=== PATIENT | male | born 1975 | race Hispanic/Latino ===

== ENCOUNTER 2016-09-22 05:18 | Inpatient (IN) | payer OTHER ==
--- NOTE | 2016-09-22 05:29 | C.PDOC ---
Time Seen by Provider: 09/22/16 05:28 Past Medical History Reviewed: Historical Data, Nursing Documentation, Vital Signs - Medical History PMH: Diabetes Denies: Chronic Kidney Disease - [facility] Procedures ALCOHOL DETOXIFICATION (01/02/13) VENOUS CATHETERIZATION NEC (10/26/12) Family History: States: Unknown Family Hx - Social History Hx Tobacco Use: No Hx Alcohol Use: Yes (daily) Hx Substance Use: No (DENIED) - Immunization History Hx Tetanus Toxoid Vaccination: No Hx Influenza Vaccination: No Hx Pneumococcal Vaccination: No ED Course And Treatment ECG: Interpreted By Me, Viewed By Me ECG Rhythm: Sinus Tachycardia (144), Nonspecific Changes Critical Care Time - Critical Care Note Total Time (in mins): 30 Documented critical care: time excludes all time spent performing seperately billable procedures. Disposition Counseled Patient/Family Regarding: Studies Performed, Diagnosis - Disposition Disposition Time: 05:29
[2016-09-22] MEDS ORDERED: Sodium Chloride 0.9% 3,000 ML IV ONE (05:40)
--- NOTE | 2016-09-22 05:54 | C.PDOC ---
History Of Present Illness Pt with nausea, vomiting, not taking his diabetic meds for about 4- days. Pt tachycardic, tachipneic, dry lips. No f/c/. Not tolerating po Time Seen by Provider: 09/22/16 05:28 Chief Complaint (Nursing): Shortness Of Breath History Per: Patient History/Exam Limitations: no limitations Onset/Duration Of Symptoms: Days Current Symptoms Are (Timing): Still Present Severity: Severe Pain Scale Rating Of: 8 Current Diabetic Medications: Oral Medication Causative (Exacerbating) Factor(s): Missed Taking Medication Associated Infectious Symptoms: Nausea, Vomiting. denies: Cough, Sore Throat, Sinus Congestion, Dysuria Treatment Prior To Provider Evaluation: None Recent travel outside of the [place]: No Additional History Per: Patient Past Medical History Reviewed: Historical Data, Nursing Documentation, Vital Signs Vital Signs: Last Vital Signs Temp 98.1 F 09/22/16 05:37 Pulse 147 H 09/22/16 05:37 Resp 22 09/22/16 05:37 BP 148/112 H 09/22/16 05:37 Pulse Ox 98 09/22/16 06:13 - Medical History PMH: Diabetes, HTN Denies: Chronic Kidney Disease - [facility] Procedures ALCOHOL DETOXIFICATION (01/02/13) VENOUS CATHETERIZATION NEC (10/26/12) Family History: States: No Known Family Hx - Social History Hx Tobacco Use: No Hx Alcohol Use: Yes (daily) Hx Substance Use: No (DENIED) - Immunization History Hx Tetanus Toxoid Vaccination: No Hx Influenza Vaccination: No Hx Pneumococcal Vaccination: No Review Of Systems Constitutional: Negative for: Fever, Chills Eyes: Negative for: Vision Change ENT: Negative for: Throat Pain Cardiovascular: Positive for: Palpitations. Negative for: Chest Pain Respiratory: Positive for: Shortness of Breath Gastrointestinal: Positive for: Nausea, Vomiting, Abdominal Pain Genitourinary: Negative for: Dysuria Musculoskeletal: Negative for: Back Pain Skin: Negative for: Rash, Lesions, Jaundice, Bruising Neurological: Negative for: Weakness Psych: Negative for: Anxiety Physical Exam - Physical Exam Appears: In Acute Distress Skin: Dry, Pale Head: Normacephalic Eye(s): bilateral: Normal Inspection, PERRL, EOMI Oral Mucosa: Dry Neck: Trachea Midline, Supple Chest: Symmetrical Cardiovascular: Rhythm Regular (tachy) Respiratory: No Rales, No Rhonchi, No Wheezing Gastrointestinal/Abdominal: Soft, No Tenderness, No Distention Back: Normal Inspection Extremity: Normal ROM Extremity: Bilateral: Atraumatic, Limited ROM To Joint Neurological/Psych: Oriented x3, Normal Speech, Normal Cognition Gait: Steady ED Course And Treatment - Laboratory Results Result Diagrams: 09/22/16 05:56 09/22/16 05:56 ECG: Interpreted By Me, Viewed By Me ECG Rhythm: Sinus Tachycardia (144), Nonspecific Changes O2 Sat by Pulse Oximetry: 98 Pulse Ox Interpretation: Normal - Radiology CXR: Interpreted by Me, Viewed By Me CXR Interpretation: Yes: Other (? rll infiltrate). No: Fracture, Cardiomegaly, Pnemothorax Progress Note: blood work, ivf, abg, Disposition Counseled Patient/Family Regarding: Studies Performed, Diagnosis - Disposition Disposition: HOSPITALIZED Disposition Time: 05:51 Condition: CRITICAL - POA Present On Arrival: Poor Glycemic Control - Clinical Impression Clinical Impression: DKA (diabetic ketoacidosis) Physician Patient Turnover Patient Signed Over To: Mariia Vela Handoff Comments: pending labs and admission
[2016-09-22 05:58] LABS: BASO # 0.1 K/uL (0.0-0.2); EOS % 0.1 % (0.0-4.0); HEMATOCRIT 48.3 % (35.0-51.0); LYMPH # 0.3 K/uL (1.0-4.3); LYMPH % 3.1 % (20.0-40.0); MEAN CELL VOLUME 93.7 fL (80.0-94.0); MEAN CORPUSCULAR HEMOGLOBIN 30.7 pg (27.0-31.0); MEAN CORPUSCULAR HGB CONC 32.8 g/dL (33.0-37.0); MEAN PLATELET VOLUME 8.7 fL (7.2-11.7); MONO # 0.9 K/uL (0.0-0.8); MONO % 8.6 % (0.0-10.0); PLATELET COUNT 143 K/uL (130-400); RED CELL DISTRIBUTION WIDTH 13.6 % (11.5-14.5)
[2016-09-22 06:06] LABS: CHLORIDE 94 mmol/L (98-107)
[2016-09-22 06:07] LABS: POTASSIUM 5.1 mmol/L (3.6-5.2); SODIUM 135 mmol/L (132-148)
[2016-09-22 06:09] LABS: ALKALINE PHOSPHATASE 181 U/L (38-126); ALT/SGPT 145 U/L (21-72); AST/SGOT 60 U/L (17-59); BLOOD UREA NITROGEN 22 mg/dL (9-20); GFR AFRICAN-AMERICAN > 60; TOTAL PROTEIN 8.6 g/dL (6.3-8.3)
[2016-09-22 06:10] LABS: CALCIUM 10.3 mg/dl (8.6-10.4)
[2016-09-22 06:34] LABS: ALB/GLOB RATIO 1.5 (1.0-2.1)
[2016-09-22 06:36] LABS: CARBON DIOXIDE 5 mmol/L (22-30); GLUCOSE,RANDOM 472 mg/dL (75-110)
[2016-09-22] MEDS ORDERED: Sodium Chloride 0.9% 1,000 ML IV ONE ×2 (06:37→11:40)
[2016-09-22 07:08] LABS: ABG ALLEN TEST POS; DRAW SITE R RAD
[2016-09-22 07:09] LABS: NEUTROPHIL 81 % (50-75); REACTIVE LYMPHOCYTES 1 % (0-0); TOTAL CELLS COUNTED 100
[2016-09-22] MEDS: Sodium Chloride 0.9% 1,000 ML IV SCH ×2 (07:15→08:15)
[2016-09-22] MEDS ORDERED: Sodium Bicarbonate (8.4%) 50 Meq Syringe IVP ONE (07:23)
[2016-09-22] MEDS ORDERED: Insulin Human Regular 100 UNIT in Sodium Chloride 0.9% 99 ML IV SCH ×2 (07:30→08:30)
[2016-09-22] MEDS ORDERED: Sodium Bicarbonate (8.4%) 50 Meq Syringe ONE (07:40)
[2016-09-22] MEDS ORDERED: Sodium Chloride 0.9% 1,000 ML IV SCH ×2 (07:45)
[2016-09-22 07:58] VITALS: BMI 23.3
[2016-09-22] MEDS ORDERED: cefTRIAXone IV 1 gm in Dextros 50 ML IV ONE (07:58)
[2016-09-22] MEDS ORDERED: Azithromycin 500 MG in Sodium Chloride 0.9% 250 ML IVPB STA (07:59)
[2016-09-22] MEDS ORDERED: cefTRIAXone IV 1 gm in Dextros 50 ML IVPB ONE (08:42)
--- NOTE | 2016-09-22 08:42 | CP.PCM.HP ---
<Ela Hutton - Last Filed: 09/22/16 09:36> History of Present Illness - History of Present Illness History of Present Illness: Medicine Note for Dr. Baer CC: abdominal pain HPI: 41M with PMHx DM and HTN presents to the ED for abdominal pain, nausea, vomiting x 4 days. Patient reports he is compliant with his medications. But he has been unable to eat anything for the past 4 days, so he didn't take his medications. He normally takes his Metformin twice a day but does not know the dose of the medication. Patient also has a history of alcohol abuse. He reports last drink was two weeks ago. In the ED the patient received 4L of fluids, started on a insulin drip. Patient admitted to ICU. Admitted to nausea and abdominal pain. Denied fever, chills, headache, chest pain, or urinary symptoms. PMHx: DM, HTN PSHx: Denied Meds: Metformin and a blood pressure medication All: NKDA SHx: Admitted to drinking alcohol on weekends (6 beers a day), denied tobacco illicit drug use FHx: Unremarkable Present on Admission - Present on Admission Any Indicators Present on Admission: Yes History of Uncontrolled Diabetes: Yes Past Patient History - Past Medical History & Family History Past Medical History?: Yes - Past Social History Smoking Status: Never Smoked - CARDIAC Hx Hypertension: Yes - PULMONARY Hx Respiratory Disorders: No Hx Tuberculosis: No - NEUROLOGICAL Hx Neurological Disorder: No HX Cerebrovascular Accident: No - HEENT Hx HEENT Problems: No - RENAL Hx Chronic Kidney Disease: No - ENDOCRINE/METABOLIC Hx Endocrine Disorders: Yes Hx Diabetes Mellitus Type 2: Yes - HEMATOLOGICAL/ONCOLOGICAL Hx Blood Disorders: No - INTEGUMENTARY Hx Dermatological Problems: No - MUSCULOSKELETAL/RHEUMATOLOGICAL Hx Musculoskeletal Disorders: No - GASTROINTESTINAL Hx Gastrointestinal Disorders: No - GENITOURINARY/GYNECOLOGICAL Hx Genitourinary Disorders: No - PSYCHIATRIC Hx Substance Use: No (DENIED) - SURGICAL HISTORY Hx Surgeries: No - ANESTHESIA Hx Anesthesia: No Meds Allergies/Adverse Reactions: Allergies Allergy/AdvReac Type Severity Reaction Status Date / Time No Known Allergies Allergy Verified 03/27/14 14:04 Physical Exam - Constitutional Appears: In Acute Distress - Head Exam Head Exam: NORMAL INSPECTION, NORMOCEPHALIC - Respiratory Exam Respiratory Exam: Rales - Cardiovascular Exam Cardiovascular Exam: Tachycardia - GI/Abdominal Exam GI & Abdominal Exam: Normal Bowel Sounds, Soft, Tenderness - Extremities Exam Extremities exam: Positive for: normal inspection, pedal pulses present. Negative for: pedal edema, tenderness - Neurological Exam Neurological exam: Alert, Oriented x3 - Psychiatric Exam Psychiatric exam: Anxious - Skin Skin Exam: Diaphoretic, Dry, Intact, Normal Color, Warm Results - Vital Signs Recent Vital Signs: Last Vital Signs Temp 97.5 F L 09/22/16 07:40 Pulse 131 H 09/22/16 07:40 Resp 32 H 09/22/16 07:40 BP 158/110 H 09/22/16 07:40 Pulse Ox 98 09/22/16 07:40 - Labs Result Diagrams: 09/22/16 05:56 09/22/16 05:56 Labs: Laboratory Results - last 24 hr 09/22/16 07:59 POC Glucose (mg/dL) 311 H Assessment & Plan - Assessment and Plan (Free Text) Plan: DKA * Admit to ICU, Dr. Pichardo * Glucose 472 on admission * Moderate serum ketones * ABG pH 7.00 * Received total of 3L NS in ED * Start on NS IVF @100cc/hr with 6.4u insulin per hour * Monitor BMP q4h * Accuchecks q1h * f/u repeat ABG @ 4pm * f/u lipid panel * f/u HgA1C, HgA1C 06/17/16- 14.2 * f/u TSH * f/u UA Pneumonia * Afebrile, tachycardiac, hypertensive, no leukocytosis, but left shift and bandemia on labs * CXR: RLL infiltrate * Lactate 1.3 * Azithromycin and Rocephin started (09/22/16) * f/u blood culture, urine culture * f/u repeat lactate @ 11am Abdominal Pain * F/U CTAB&P Hx of Alcohol Abuse * f/u alcohol * f/u UDS * Folic, thiamine, MV * Ativan 1mg IVP Q6h PRN Prophylactic measures * Protonix 40mg PO daily * SCDs * NPO DW Anni Conte DO, PGY-1 <Perry Baer H - Last Filed: 09/22/16 11:50> Results - Vital Signs Recent Vital Signs: Last Vital Signs Temp 97.4 F L 09/22/16 08:40 Pulse 102 H 09/22/16 11:20 Resp 23 09/22/16 11:20 BP 131/97 H 09/22/16 11:16 Pulse Ox 96 09/22/16 11:20 - Labs Result Diagrams: 09/22/16 10:08 09/22/16 10:25 Labs: Laboratory Results - last 24 hr 09/22/16 09/22/16 09/22/16 07:59 08:58 10:08 WBC RBC Hgb Hct MCV MCH MCHC RDW Plt Count MPV Neut % (Auto) Lymph % (Auto) [place] % (Auto) Eos % (Auto) Baso % (Auto) Neut # Lymph # [place] # Eos # Baso # Neutrophils % (Manual) Band Neutrophils % Lymphocytes % (Manual) Monocytes % (Manual) Platelet Estimate Large Platelets Polychromasia Hypochromasia (manual) Poikilocytosis (manual Anisocytosis (manual) Ovalocytes [place] Cells Sodium Potassium Chloride Carbon Dioxide Anion Gap BUN Creatinine Est GFR ( Amer) Est GFR (Non-Af Amer) POC Glucose (mg/dL) 311 H 249 H Random Glucose Lactic Acid Calcium Phosphorus 1.9 L Magnesium 1.5 L Total Bilirubin AST ALT Alkaline Phosphatase Total Protein Albumin Globulin Albumin/Globulin Ratio TSH 3rd Generation 0.74 Alcohol, Quantitative < 10 09/22/16 09/22/16 09/22/16 10:08 10:08 10:25 WBC 5.7 RBC 4.40 Hgb 13.2 D Hct 39.8 MCV 90.4 D MCH 30.0 MCHC 33.1 RDW 13.1 Plt Count 82 L D MPV 8.0 Neut % (Auto) 84.0 H Lymph % (Auto) 3.[address] [place] % (Auto) 11.9 H Eos % (Auto) 0.0 Baso % (Auto) 0.3 Neut # 4.8 Lymph # 0.[address] [place] # 0.7 Eos # 0.0 Baso # 0.0 Neutrophils % (Manual) 73 Band Neutrophils % 13 H* Lymphocytes % (Manual) 3 L Monocytes % (Manual) 11 H Platelet Estimate Decreased L Large Platelets Present Polychromasia Slight Hypochromasia (manual) Slight Poikilocytosis (manual Slight Anisocytosis (manual) Slight Ovalocytes Slight [place] Cells Slight Sodium 138 Potassium 3.5 L Chloride 105 Carbon Dioxide 7 L* D Anion Gap 30 H BUN 15 Creatinine 0.6 L Est GFR ( Amer) > 60 Est GFR (Non-Af Amer) > 60 POC Glucose (mg/dL) Random Glucose 193 H Lactic Acid 2.0 Calcium 8.1 L Phosphorus Magnesium Total Bilirubin 0.7 AST 61 H ALT 105 H D Alkaline Phosphatase 139 H D Total Protein 6.9 Albumin 4.1 Globulin 2.8 Albumin/Globulin Ratio 1.5 TSH 3rd Generation Alcohol, Quantitative 09/22/16 10:54 WBC RBC Hgb Hct MCV MCH MCHC RDW Plt Count MPV Neut % (Auto) Lymph % (Auto) [place] % (Auto) Eos % (Auto) Baso % (Auto) Neut # Lymph # [place] # Eos # Baso # Neutrophils % (Manual) Band Neutrophils % Lymphocytes % (Manual) Monocytes % (Manual) Platelet Estimate Large Platelets Polychromasia Hypochromasia (manual) Poikilocytosis (manual Anisocytosis (manual) Ovalocytes [place] Cells Sodium Potassium Chloride Carbon Dioxide Anion Gap BUN Creatinine Est GFR ( Amer) Est GFR (Non-Af Amer) POC Glucose (mg/dL) 200 H Random Glucose Lactic Acid Calcium Phosphorus Magnesium Total Bilirubin AST ALT Alkaline Phosphatase Total Protein Albumin Globulin Albumin/Globulin Ratio TSH 3rd Generation Alcohol, Quantitative Attending/Attestation - Attestation I have personally seen and examined this patient.: Yes I have fully participated in the care of the patient.: Yes I have reviewed all pertinent clinical information: Yes Notes (Text): 09/22/16 11:47 Medical Attending: Patient was seen and examined by me. Agree with the above note by the resident. The patient currently is in ICU 9, he recived 4 liters of IVF so far and now is on a insulin ggt u/kg/hr He has an anion gap, hopefully this will close by tommorow and he can then be moved to the medical floors. Per review of the medical records he has had admission into the ICU for similar DKA last year. Also on the imaging of the chest it suggest potential infiltrate as well and he was placed on IV abx thank you Perry Baer
[2016-09-22 08:43] LABS: URINE BACTERIA RARE (<OCC); URINE BILIRUBIN NEGATIVE (NEGATIVE); URINE BLOOD 1+ (NEGATIVE); URINE COLOR Yellow (YELLOW); URINE GLUCOSE (UA) 3+ mg/dL (Normal); URINE HYALINE CAST 0-2 /lpf (0-2); URINE KETONE 2+ mg/dL (NEGATIVE); URINE LEUKOCYTE ESTERASE NEG Leu/uL (Negative); URINE PROTEIN 1+ mg/dL (NEGATIVE); URINE UROBILINOGEN NORMAL mg/dL (0.2-1.0)
[2016-09-22 08:54] LABS: RBC URINE 2 /hpf (0-3); WBC URINE 2 /hpf (0-5)
--- NOTE | 2016-09-22 09:35 | CP.PCM.CON ---
History of Present Illness - History of Present Illness History of Present Illness: Chief complaint: Abdominal pain, vomiting History present illness: 39-year-old male with history of known diabetes, multiple episodes of DKA in the past hospitalized multiple times in the past came to the emergency room with the 4 days history of nausea, vomiting, by he is in nature, complicated with the not eating, and the dehydration. Patient was also having some cough, cough associate with the some mucus production. He did not have any fever. His also used to drink alcohol, especially in the weekend at least 6 cans abuse. Patient is not able to eat anything for the last a few days, complicated with the dehydration. Denies any fever, no chills noted. Poor intake. No diarrhea noted. No skin rash noted Past fecal history: DKA, diabetes, noncompliance Allergies: No known drug allergy Personal history: Patient is an alcoholic, nonsmoker. Noncompliance Family history noncontributory Patient is currently living by himself Review of system: No headache, shaking and mild tremor noted, nausea and abdominal pain, vomiting noted. Bloated abdomen noted, no leg swelling On examination: Patient is currently tachycardic, hypertension noted. Patient is also tachypneic. Chest bilateral wheezing and rales noted regular heart sound, tachycardia abdomen soft epigastric tenderness noted edema negative. [employer] alert awake oriented, mild tremor noted Labs reviewed Chest x-ray right lower lung possible atelectasis versus pneumonia Labs reveals DKA, anion gap acidosis, dehydration Assessment and recommendation Past Patient History - Past Medical History & Family History Past Medical History?: Yes - Past Social History Smoking Status: Never Smoked - CARDIAC Hx Hypertension: Yes - PULMONARY Hx Respiratory Disorders: No Hx Tuberculosis: No - NEUROLOGICAL Hx Neurological Disorder: No HX Cerebrovascular Accident: No - HEENT Hx HEENT Problems: No - RENAL Hx Chronic Kidney Disease: No - ENDOCRINE/METABOLIC Hx Endocrine Disorders: Yes Hx Diabetes Mellitus Type 2: Yes - HEMATOLOGICAL/ONCOLOGICAL Hx Blood Disorders: No - INTEGUMENTARY Hx Dermatological Problems: No - MUSCULOSKELETAL/RHEUMATOLOGICAL Hx Musculoskeletal Disorders: No - GASTROINTESTINAL Hx Gastrointestinal Disorders: No - GENITOURINARY/GYNECOLOGICAL Hx Genitourinary Disorders: No - PSYCHIATRIC Hx Substance Use: No (DENIED) - SURGICAL HISTORY Hx Surgeries: No - ANESTHESIA Hx Anesthesia: No Meds Allergies/Adverse Reactions: Allergies Allergy/AdvReac Type Severity Reaction Status Date / Time No Known Allergies Allergy Verified 03/27/14 14:04 - Medications Medications: Current Medications Azithromycin 500 mg/ Sodium (Chloride) 250 mls @ 250 mls/hr IVPB DAILY JV Ceftriaxone Sodium 1 gm/ (Sodium Chloride) 100 mls @ 100 mls/hr IVPB DAILY JV Insulin Human Regular 100 unit (/ Sodium Chloride) 100 mls @ 2 mls/hr IV .Q24H JV PRN Reason: Protocol Lorazepam (Ativan) 1 mg IVP Q6H PRN PRN Reason: Anxiety Results - Vital Signs Recent Vital Signs: Last Vital Signs Temp 97.4 F L 09/22/16 08:40 Pulse 127 H 09/22/16 08:40 Resp 26 H 09/22/16 08:40 BP 165/114 H 09/22/16 08:40 Pulse Ox 100 09/22/16 08:40 - Labs Result Diagrams: 09/22/16 05:56 09/22/16 05:56 Labs: Laboratory Results - last 24 hr 09/22/16 09/22/16 07:59 08:58 POC Glucose (mg/dL) 311 H 249 H
[2016-09-22] MEDS ORDERED: Labetalol 25mg/5ml Syringe IVP PRN (09:36)
[2016-09-22] MEDS ORDERED: Multiple Vitamins Tab PO SCH (10:00)
[2016-09-22] MEDS: Insulin Human Regular 100 UNIT in Sodium Chloride 0.9% 99 ML IV SCH (10:08)
[2016-09-22 10:21] LABS: BASO % 0.3 % (0.0-2.0); HEMATOCRIT 39.8 % (35.0-51.0); LYMPH # 0.2 K/uL (1.0-4.3); LYMPH % 3.8 % (20.0-40.0); MEAN CORPUSCULAR HGB CONC 33.1 g/dL (33.0-37.0); MONO # 0.7 K/uL (0.0-0.8); MONO % 11.9 % (0.0-10.0); NRBC % 0.1 % (0.0-2.0); RED CELL DISTRIBUTION WIDTH 13.1 % (11.5-14.5); WHITE BLOOD COUNT 5.7 K/uL (4.8-10.8)
[2016-09-22 10:33] LABS: MEAN CELL VOLUME 90.4 fL (80.0-94.0)
[2016-09-22 10:34] LABS: PLATELET COUNT 82 K/uL (130-400)
[2016-09-22 10:42] LABS: CHLORIDE 105 mmol/L (98-107); POTASSIUM 3.5 mmol/L (3.6-5.2); SODIUM 138 mmol/L (132-148)
[2016-09-22 10:44] LABS: AST/SGOT 61 U/L (17-59); BILIRUBIN,TOTAL 0.7 mg/dL (0.2-1.3); GFR AFRICAN-AMERICAN > 60
[2016-09-22 10:45] LABS: ALCOHOL SERUM < 10 mg/dl (0-10); PHOSPHOROUS 1.9 mg/dL (2.5-4.5)
[2016-09-22 10:45] LABS: ALB/GLOB RATIO 1.5 (1.0-2.1); ALKALINE PHOSPHATASE 139 U/L (38-126); ALT/SGPT 105 U/L (21-72); BLOOD UREA NITROGEN 15 mg/dL (9-20); GLUCOSE,RANDOM 193 mg/dL (75-110); TOTAL PROTEIN 6.9 g/dL (6.3-8.3)
[2016-09-22 10:46] LABS: MAGNESIUM 1.5 mg/dL (1.6-2.3)
[2016-09-22 10:46] LABS: CALCIUM 8.1 mg/dl (8.6-10.4)
[2016-09-22 10:52] LABS: CARBON DIOXIDE 7 mmol/L (22-30)
[2016-09-22 11:12] LABS: NEUTROPHIL 73 % (50-75); TOTAL CELLS COUNTED 100
[2016-09-22 11:14] LABS: LARGE PLATELETS PRESENT
[2016-09-22 11:17] LABS: THYROID STIMULATING HORMONE 0.74 mIU/L (0.46-4.68)
[2016-09-22] MEDS ORDERED: Multivitamin (MVI) 10 ML, Thiamine 100 MG, Folic Acid 1 MG in Sodium Chloride 0.9% 1,00... IV ONE (11:40)
[2016-09-22] MEDS ORDERED: Iohexol 240 (50 ml) PO ONE (12:00)
[2016-09-22] MEDS: Azithromycin 500 MG in Sodium Chloride 0.9% 250 ML IVPB SCH (12:00)
[2016-09-22 12:12] LABS: ARTERIAL BLOOD HGB O2 SAT 96.5 % (95.0-98.0); CARBOXYHEMOGLOBIN 1.1 % (0.5-1.5); DRAW SITE RB; HHB 1.7 % (0.0-5.0); METHEMOGLOBIN 0.7 % (0.0-3.0)
--- NOTE | 2016-09-22 12:33 | RAD ---
HISTORY: chf COMPARISON: Comparison made with prior study 10/19/2016 FINDINGS: LUNGS: Mild central pulmonary vascular congestion There is also patchy atelectasis or infiltrate in the right lung base. Minor left basilar atelectasis PLEURA: No significant pleural effusion identified, no pneumothorax apparent. CARDIOVASCULAR: Normal. OSSEOUS STRUCTURES: No significant abnormalities. VISUALIZED UPPER ABDOMEN: Normal. OTHER FINDINGS: None. IMPRESSION: Mild central pulmonary vascular congestion There is also patchy atelectasis or infiltrate in the right lung base. Minor left basilar atelectasis
--- NOTE | 2016-09-22 12:34 | RAD ---
PROCEDURE: CHEST RADIOGRAPH, 1 VIEW HISTORY: Diabetic COMPARISON: Comparison chest dated 06/17/2016 FINDINGS: LUNGS: Patchy atelectasis and/or infiltrate right lung base. Mild left basilar atelectasis PLEURA: No pneumothorax or pleural fluid seen. CARDIOVASCULAR: Normal. OSSEOUS STRUCTURES: No significant abnormalities. VISUALIZED UPPER ABDOMEN: Normal. OTHER FINDINGS: None. IMPRESSION: Patchy atelectasis and or infiltrate left lung base. Minor left basilar atelectasis
[2016-09-22 15:50] LABS: BASO % 0.5 % (0.0-2.0); EOS % 0.2 % (0.0-4.0); HEMATOCRIT 35.7 % (35.0-51.0); LYMPH # 0.5 K/uL (1.0-4.3); LYMPH % 11.6 % (20.0-40.0); MEAN CELL VOLUME 90.9 fL (80.0-94.0); MEAN CORPUSCULAR HEMOGLOBIN 30.3 pg (27.0-31.0); MEAN CORPUSCULAR HGB CONC 33.3 g/dL (33.0-37.0); MEAN PLATELET VOLUME 7.9 fL (7.2-11.7); MONO # 0.6 K/uL (0.0-0.8); MONO % 14.5 % (0.0-10.0); RED CELL DISTRIBUTION WIDTH 13.4 % (11.5-14.5); WHITE BLOOD COUNT 3.9 K/uL (4.8-10.8)
[2016-09-22 16:02] LABS: CHLORIDE 105 mmol/L (98-107); SODIUM 137 mmol/L (132-148)
[2016-09-22 16:03] LABS: POTASSIUM 3.3 mmol/L (3.6-5.2)
[2016-09-22 16:04] LABS: BILIRUBIN,TOTAL 0.8 mg/dL (0.2-1.3); GFR AFRICAN-AMERICAN > 60
[2016-09-22 16:05] LABS: ALB/GLOB RATIO 1.4 (1.0-2.1); ALKALINE PHOSPHATASE 138 U/L (38-126); ALT/SGPT 92 U/L (21-72); AST/SGOT 62 U/L (17-59); BLOOD UREA NITROGEN 12 mg/dL (9-20); CALCIUM 8.1 mg/dl (8.6-10.4); GLUCOSE,RANDOM 191 mg/dL (75-110); MAGNESIUM 1.6 mg/dL (1.6-2.3); PHOSPHOROUS 1.5 mg/dL (2.5-4.5); TOTAL PROTEIN 6.1 g/dL (6.3-8.3)
[2016-09-22 16:09] LABS: CARBON DIOXIDE 9 mmol/L (22-30)
[2016-09-22] MEDS: Magnesium Sulfate 1 gm in D5W 1 GM/100 ML BAG IVPB SCH ×2 (17:49→17:50)
[2016-09-22] MEDS ORDERED: Sodium Phosphate 15 MMOLE in Sodium Chloride 0.9% 250 ML IVPB ONE (18:00)
--- NOTE | 2016-09-22 18:07 | CT ---
PROCEDURE: CT Abdomen and Pelvis with Oral contrast. HISTORY: pancreatitis COMPARISON: Correlation made with abdominal ultrasound dated 06/19/2016. TECHNIQUE: Contiguous axial images of the abdomen and pelvis. Oral contrast was administered. No IV contrast given. Coronal and Sagittal reformats generated. . Examination is limited due to motion motion artifact. Radiation dose: Total exam DLP = 314 mGy-cm. This CT exam was performed using one or more of the following dose reduction techniques: Automated exposure control, adjustment of the mA and/or kV according to patient size, and/or use of iterative reconstruction technique. FINDINGS: LOWER THORAX: Patchy atelectasis and or infiltrate right lung base. Mild left basilar atelectasis. No effusion. No evidence of pneumothorax. Heart size within range of normal. No significant pericardial effusion. There is tiny hiatal hernia with slight wall thickening of the distal esophagus that could be due to protrusion of gastric mucosa. Esophagitis not excluded LIVER: Liver exhibits normal size. Unenhanced liver appears grossly unremarkable without obvious masses or collections. GALLBLADDER AND BILE DUCTS: The gallbladder is physiologically distended. No evidence of intraluminal gallbladder calculi. The PANCREAS: The visualized portions of the pancreas appear grossly unremarkable. No evidence of masses collections or calcifications. No significant ductal dilatation. SPLEEN: Spleen exhibits normal size without mass collection or calcification. ADRENALS: No obvious adrenal lesions. KIDNEYS AND URETERS: The kidneys exhibit relatively symmetric size. No evidence of nephrolithiasis or hydronephrosis. BLADDER: Markedly distended urinary bladder. Rule out bladder outlet obstruction. . No evidence of intraluminal urinary bladder calculi. REPRODUCTIVE: Unremarkable. APPENDIX: What could represent the appendix best seen on axial image number [id number]. No obvious periappendiceal inflammatory changes. BOWEL: Evaluation of the bowel is limited due to incomplete opacification. Stomach is nondistended which presumably accounts for thick-walled appearance. The possibility of gastritis not excluded. Visualized loops of small bowel exhibit normal contour and caliber. No evidence of acute mechanical small bowel obstruction. Oral contrast material has extended into the colon to the level of the descending/sigmoid colon junction. No definitive mural wall thickening. PERITONEUM: Unremarkable. No fluid collection. No free air. LYMPH NODES: Unremarkable. No enlarged lymph nodes. VASCULATURE: Unremarkable. No aortic aneurysm. BONES: Mild multilevel degenerative spondylosis of the lower thoracic and lumbar spine. There is a mild levoscoliosis centered at the lower thoracic region. OTHER FINDINGS: None. IMPRESSION: Limited motion degraded study. Patchy atelectasis/ infiltrate right lung base. Mild left basilar atelectasis. Markedly distended urinary bladder. Rule markedly distended urinary bladder outlet obstruction.
[2016-09-22 22:05] LABS: VENOUS BLOOD GAS BASE EXCESS -12.4 mmol/L (0.0-2.0); VENOUS BLOOD GAS PCO2 26 mmHg (40-60); VENOUS BLOOD PH 7.29 (7.32-7.43)
[2016-09-22] MEDS: Potassium Chl 40 mEq in D5-1/2 1,000 ML IV SCH (22:26)
[2016-09-22 22:29] LABS: CHLORIDE 107 mmol/L (98-107); POTASSIUM 3.2 mmol/L (3.6-5.2); SODIUM 138 mmol/L (132-148)
[2016-09-22 22:32] LABS: BLOOD UREA NITROGEN 9 mg/dL (9-20); CARBON DIOXIDE 12 mmol/L (22-30); GFR AFRICAN-AMERICAN > 60; GLUCOSE,RANDOM 106 mg/dL (75-110); PHOSPHOROUS 2.1 mg/dL (2.5-4.5)
[2016-09-22 22:33] LABS: MAGNESIUM 2.1 mg/dL (1.6-2.3)
[2016-09-23 05:56] LABS: BASO % 0.3 % (0.0-2.0); EOS # 0.1 K/uL (0.0-0.7); EOS % 2.3 % (0.0-4.0); HEMATOCRIT 37.5 % (35.0-51.0); LYMPH # 0.6 K/uL (1.0-4.3); LYMPH % 17.8 % (20.0-40.0); MEAN CELL VOLUME 90.8 fL (80.0-94.0); MEAN CORPUSCULAR HEMOGLOBIN 30.1 pg (27.0-31.0); MEAN CORPUSCULAR HGB CONC 33.2 g/dL (33.0-37.0); MEAN PLATELET VOLUME 8.4 fL (7.2-11.7); MONO # 0.4 K/uL (0.0-0.8); MONO % 13.4 % (0.0-10.0); NRBC % 0.2 % (0.0-2.0); RED CELL DISTRIBUTION WIDTH 13.6 % (11.5-14.5); WHITE BLOOD COUNT 3.2 K/uL (4.8-10.8)
[2016-09-23 06:22] LABS: CHLORIDE 109 mmol/L (98-107)
[2016-09-23 06:23] LABS: POTASSIUM 3.2 mmol/L (3.6-5.2); SODIUM 138 mmol/L (132-148)
[2016-09-23 06:24] LABS: CHOLESTEROL 157 mg/dL (0-199)
[2016-09-23 06:25] LABS: ALKALINE PHOSPHATASE 134 U/L (38-126); ALT/SGPT 82 U/L (21-72); AST/SGOT 75 U/L (17-59); BILIRUBIN,TOTAL 0.7 mg/dL (0.2-1.3); BLOOD UREA NITROGEN 7 mg/dL (9-20); GFR AFRICAN-AMERICAN > 60; GLUCOSE,RANDOM 144 mg/dL (75-110); TOTAL PROTEIN 5.5 g/dL (6.3-8.3)
[2016-09-23 06:26] LABS: CALCIUM 7.9 mg/dl (8.6-10.4); MAGNESIUM 1.8 mg/dL (1.6-2.3)
[2016-09-23 06:39] LABS: CARBON DIOXIDE 9 mmol/L (22-30)
[2016-09-23 06:40] LABS: ALB/GLOB RATIO 1.1 (1.0-2.1)
[2016-09-23] MEDS: Potassium Chl 40 mEq in D5-1/2 1,000 ML IV SCH ×3 (06:57→23:54)
[2016-09-23] MEDS ORDERED: Multivitamin (MVI) 10 ML, Thiamine 100 MG, Folic Acid 1 MG in Sodium Chloride 0.9% 1,00... IV ONE (07:53)
[2016-09-23] MEDS ORDERED: Sodium Phosphate 15 MMOLE in Sodium Chloride 0.9% 250 ML IVPB ONE ×2 (08:30→21:41)
[2016-09-23] MEDS: Azithromycin 500 MG in Sodium Chloride 0.9% 250 ML IVPB SCH (09:27)
[2016-09-23] MEDS: Magnesium Sulfate 1 gm in D5W 1 GM/100 ML BAG IVPB SCH ×3 (09:28→09:42)
[2016-09-23] MEDS: Pantoprazole 20 mg EC Tab PO SCH (09:43)
[2016-09-23] MEDS: Insulin Human Regular 100 UNIT in Sodium Chloride 0.9% 99 ML IV SCH (09:45)
[2016-09-23 10:11] LABS: ABG ALLEN TEST POS; ARTERIAL BLOOD HGB O2 SAT 95.8 % (95.0-98.0); CARBOXYHEMOGLOBIN 0.9 % (0.5-1.5); DRAW SITE RRADIA; METHEMOGLOBIN 1.3 % (0.0-3.0)
[2016-09-23] MEDS ORDERED: Vecuronium 10 mg Inj IV ONE (11:45)
--- NOTE | 2016-09-23 13:04 | CP.PCM.PN ---
Subjective - Date & Time of Evaluation Date of Evaluation: 09/23/16 Time of Evaluation: 13:00 - Subjective Subjective: Patient as of this morning had accuchecks with sugars in the 110s to 220 range however the bicarb was still low and he was continued on the insulin ggt. On IVF with potassium replacement and also he needed phosphorus replacement as well. He was awake and alert, answering some questions when I asked him with my very basic Maltese. He also looked lethargic Objective - Vital Signs/Intake and Output Vital Signs (last 24 hours): Temp Pulse Resp BP Pulse Ox 97.8 F 98 H 16 116/78 100 09/23/16 11:00 09/23/16 12:50 09/23/16 12:50 09/23/16 12:16 09/23/16 12:50 Intake and Output: 09/23/16 09/23/16 06:59 18:59 Intake Total 2553.7 1736 Output Total 1150 1000 Balance 1403.7 736 - Medications Medications: Current Medications Chlordiazepoxide (Librium) 15 mg PO Q12 JV Stop: 09/25/16 10:01 Gabapentin (Neurontin) 100 mg PO TID [facility] Last Admin: 09/23/16 09:43 Dose: 100 mg Azithromycin 500 mg/ Sodium (Chloride) 250 mls @ 250 mls/hr IVPB DAILY [facility] Last Admin: 09/23/16 09:27 Dose: 250 mls/hr Ceftriaxone Sodium 1 gm/ (Sodium Chloride) 100 mls @ 100 mls/hr IVPB DAILY [facility] Last Admin: 09/23/16 09:29 Dose: 100 mls/hr Potassium Chloride/Dextrose/Sod Cl (Potassium Chl 40 Meq In D5-1/2ns) 1,000 mls @ 100 mls/hr IV .Q10H [facility] Last Admin: 09/23/16 06:57 Dose: Not Given Sodium Phosphate 15 mmole/ (Sodium Chloride) 255 mls @ 50 mls/hr IVPB .Q5H6M ONE Stop: 09/23/16 13:35 Last Admin: 09/23/16 09:29 Dose: 50 mls/hr Multivitamins/Vitamin C 10 ml/Thiamine HCl 100 mg/ Folic Acid 1 mg/ Sodium Chloride 1,011.2 mls @ 75 mls/hr IV ONCE ONE Stop: 09/23/16 21:21 Last Admin: 09/23/16 09:28 Dose: 75 mls/hr Insulin Glargine (Lantus) 10 unit SC HS JV Insulin Human Regular (Novolin R) 0 unit SC ACHS [facility] PRN Reason: Protocol Lorazepam (Ativan) 2 mg IVP Q4 PRN PRN Reason: Anxiety Pantoprazole Sodium (Protonix Ec Tab) 20 mg PO DAILY [facility] Last Admin: 09/23/16 09:43 Dose: 20 mg - Labs Labs: 09/23/16 05:49 09/23/16 05:49 - Constitutional Appears: No Acute Distress, Unkempt, Confused, Chronically Ill - Head Exam Head Exam: NORMAL INSPECTION - Eye Exam Eye Exam: Normal appearance - ENT Exam ENT Exam: Mucous Membranes Moist - Respiratory Exam Respiratory Exam: Clear to Ausculation Bilateral, NORMAL BREATHING PATTERN - GI/Abdominal Exam GI & Abdominal Exam: Soft, Normal Bowel Sounds. absent: Tenderness - Neurological Exam Neurological Exam: Alert, Awake - Psychiatric Exam Psychiatric exam: Depressed, Flat Affect - Skin Skin Exam: Normal Color, Warm Assessment and Plan - Assessment and Plan (Free Text) Assessment: DKA 09/23: Patient on insulin ggt, IVF with potassium replacement and also phosphorus replacement. Patient has accuchecks 110s to 220s and the bicarb was still low as of this morning. When he came in yesterday pH was 7.0 and had ketones and bicarb. Patient has had episodes of DKA in the past. Pneumonia 09/23: CT imaging suggesting R lower lobe infiltrate. The blood cultures pending at this time * Afebrile, tachycardiac, hypertensive, no leukocytosis, but left shift and bandemia on labs * CXR: RLL infiltrate * Lactate 1.3 * Azithromycin and Rocephin started (09/22/16) * f/u blood culture, urine culture Abdominal Pain * F/U CTAB&P Hx of Alcohol Abuse 09/23 Electrolyte repplacement, and banna bag supplement * f/u alcohol * f/u UDS * Folic, thiamine, MV * Ativan 1mg IVP Q6h PRN Prophylactic measures * Protonix 40mg PO daily * SCDs * NPO
[2016-09-23 14:45] LABS: CHLORIDE 106 mmol/L (98-107)
[2016-09-23 14:46] LABS: POTASSIUM 3.1 mmol/L (3.6-5.2); SODIUM 138 mmol/L (132-148)
[2016-09-23 14:48] LABS: ALB/GLOB RATIO 1.1 (1.0-2.1); BILIRUBIN,TOTAL 0.7 mg/dL (0.2-1.3); CARBON DIOXIDE 15 mmol/L (22-30); GFR AFRICAN-AMERICAN > 60; TOTAL PROTEIN 5.7 g/dL (6.3-8.3)
[2016-09-23 14:49] LABS: ALKALINE PHOSPHATASE 127 U/L (38-126); ALT/SGPT 86 U/L (21-72); AST/SGOT 71 U/L (17-59); BLOOD UREA NITROGEN 7 mg/dL (9-20); CALCIUM 8.2 mg/dl (8.6-10.4); GLUCOSE,RANDOM 141 mg/dL (75-110); PHOSPHOROUS 2.1 mg/dL (2.5-4.5)
[2016-09-23 14:50] LABS: MAGNESIUM 2.2 mg/dL (1.6-2.3)
[2016-09-23] MEDS: (Novolin R) Insulin Human Regular 100 units/ml vial SC SCH ×2 (17:18→21:13)
[2016-09-23 20:40] LABS: BASO % 0.7 % (0.0-2.0); EOS # 0.1 K/uL (0.0-0.7); EOS % 2.2 % (0.0-4.0); HEMATOCRIT 34.4 % (35.0-51.0); LYMPH # 0.5 K/uL (1.0-4.3); LYMPH % 21.1 % (20.0-40.0); MEAN CELL VOLUME 89.2 fL (80.0-94.0); MEAN CORPUSCULAR HEMOGLOBIN 30.1 pg (27.0-31.0); MEAN CORPUSCULAR HGB CONC 33.7 g/dL (33.0-37.0); MEAN PLATELET VOLUME 7.4 fL (7.2-11.7); MONO # 0.3 K/uL (0.0-0.8); MONO % 13.1 % (0.0-10.0); NRBC % 0.1 % (0.0-2.0); RED CELL DISTRIBUTION WIDTH 13.6 % (11.5-14.5); WHITE BLOOD COUNT 2.6 K/uL (4.8-10.8)
[2016-09-23 20:50] LABS: CHLORIDE 103 mmol/L (98-107)
[2016-09-23 20:51] LABS: POTASSIUM 3.6 mmol/L (3.6-5.2); SODIUM 135 mmol/L (132-148)
[2016-09-23 20:53] LABS: ALB/GLOB RATIO 1.3 (1.0-2.1); ALKALINE PHOSPHATASE 126 U/L (38-126); AST/SGOT 66 U/L (17-59); BILIRUBIN,TOTAL 0.7 mg/dL (0.2-1.3); BLOOD UREA NITROGEN 7 mg/dL (9-20); CARBON DIOXIDE 17 mmol/L (22-30); GFR AFRICAN-AMERICAN > 60; GLUCOSE,RANDOM 308 mg/dL (75-110); TOTAL PROTEIN 5.3 g/dL (6.3-8.3)
[2016-09-23 20:54] LABS: ALT/SGPT 86 U/L (21-72); CALCIUM 7.9 mg/dl (8.6-10.4); MAGNESIUM 1.9 mg/dL (1.6-2.3); PHOSPHOROUS 1.4 mg/dL (2.5-4.5)
[2016-09-23] MEDS ORDERED: (Lantus) Insulin Glargine, Recombinant SC SCH (22:00)
--- NOTE | 2016-09-23 22:15 | CP.CCUPN ---
CCU Subjective - Physician Review Events Since Last Encounter (Free Text): 09/23/16 22:13 History present illness: 39-year-old male with history of known diabetes, multiple episodes of DKA in the past hospitalized multiple times in the past came to the emergency room with the 4 days history of nausea, vomiting, by he is in nature, complicated with the not eating, and the dehydration. Patient was also having some cough, cough associate with the some mucus production. He did not have any fever. His also used to drink alcohol, especially in the weekend at least 6 cans abuse. Patient is not able to eat anything for the last a few days, complicated with the dehydration. Denies any fever, no chills noted. Poor intake. No diarrhea noted. No skin rash noted Past fecal history: DKA, diabetes, noncompliance Allergies: No known drug allergy Personal history: Patient is an alcoholic, nonsmoker. Noncompliance Patient underwent went CAT scan of the abdomen. Showing bladder distention. But currently patient is voiding good. He is feeling much better today, he is feeling no pain. Patient had significant electrolytic imbalance, currently receiving supplementation. Blood sugar is improving. Insulin drip is currently off. Anion gap improving. CCU Objective - Vital Signs / Intake & Output Vital Signs (Last 4 hours): Vital Signs Temp Pulse Resp BP Pulse Ox 09/23/16 21:16 97 H 19 125/92 H 100 09/23/16 20:50 97 H 20 09/23/16 20:40 93 H 19 100 09/23/16 20:20 97 H 17 100 09/23/16 20:16 123/87 09/23/16 20:10 99 H 19 100 09/23/16 20:00 97.8 F 96 H 18 100 09/23/16 19:50 97 H 16 100 09/23/16 19:30 96 H 19 100 09/23/16 19:16 109/77 09/23/16 19:00 98 F 100 H 16 09/23/16 18:50 106 H 16 100 09/23/16 18:40 101 H 16 100 09/23/16 18:30 103 H 15 100 09/23/16 18:20 102 H 19 100 09/23/16 18:16 100 H 21 114/84 100 Intake and Output (Last 8hrs): Intake & Output 09/23/16 09/23/16 09/23/16 06:59 14:59 22:59 Intake Total 1520 2236 1925 Output Total 1150 1000 2100 Balance 370 1236 -175 Weight 125 lb 8 oz Intake: IV 8 Intake, IV Amount 1512 2036 1375 Left Distal Port 800 700 700 Antecubital Left Proximal Port 12 11 50 Antecubital Right Distal Port 250 100 Antecubital Right Medial Port 600 525 525 Antecubital Right Proximal Port 100 550 Antecubital Oral 200 550 Output: Urine 1150 1000 2100 Urine, Voided 1150 1000 2100 Other: # Bowel Movements 0 Vital signs reviewed No neck vein distention noted Chest good air entry bilaterally, no wheezing or rales noted CVS regular heart sound, no murmur noted Abdomen soft, nontender. Extremities no pedal edema BELL TIER alert awake oriented 3, no functional neurological deficit - Medications Active Medications: Active Medications Generic Name Dose Route Start Last Admin Trade Name Freq PRN Reason Stop Dose Admin Chlordiazepoxide 5 mg 09/23/16 17:47 09/23/16 21:12 Librium PO 09/25/16 10:01 5 mg Q12 JV Administration Gabapentin 100 mg 09/22/16 18:00 09/23/16 17:17 Neurontin PO 100 mg TID JV Administration Azithromycin 500 mg/ Sodium 250 mls @ 250 mls/hr 09/22/16 11:00 09/23/16 09: 27 Chloride IVPB 250 mls/hr DAILY JV Administration Ceftriaxone Sodium 1 gm/ 100 mls @ 100 mls/hr 09/23/16 10:00 09/23/16 09:29 Sodium Chloride IVPB 100 mls/hr DAILY JV Administration Potassium Chloride/Dextrose/Sod Cl 1,000 mls @ 100 mls/hr 09/22/16 21:45 08/06 18:27 Potassium Chl 40 Meq In D5-1/2ns IV 100 mls/hr .Q10H JV Administration Sodium Phosphate 15 mmole/ 255 mls @ 50 mls/hr 09/23/16 21:41 Sodium Chloride IVPB 09/24/16 02:46 .Q5H6M ONE Insulin Glargine 10 unit 09/23/16 22:00 09/23/16 21:12 Lantus SC 10 units HS JV Administration Insulin Human Regular 0 unit 09/23/16 16:30 09/23/16 21:13 Novolin R SC Not Given ACHS JV Protocol Lorazepam 2 mg 09/23/16 11:45 Ativan IVP Q4 PRN Anxiety Pantoprazole Sodium 20 mg 09/23/16 10:00 09/23/16 09:43 Protonix Ec Tab PO 20 mg DAILY JV Administration - Patient Studies Lab Studies: Microbiology Studies 09/22/16 17:00 Blood Culture - Preliminary Blood NO GROWTH AFTER 24 HOURS 09/22/16 17:00 Blood Culture - Preliminary Blood NO GROWTH AFTER 24 HOURS 09/22/16 Unknown MRSA Culture (Admit) - Final Nose MRSA NOT DETECTED 09/22/16 10:33 Urine Culture - Final Urine,[place] No Growth (<1,000 CFU/ML) Lab Studies 09/23/16 09/23/16 09/23/16 Range/Units 21:12 20:36 20:36 WBC 2.6 L (4.8-10.8) K/uL RBC 3.86 L (4.40-5.90) Mil/uL Hgb 11.6 L (12.0-18.0) g/dL Hct 34.4 L (35.0-51.0) % MCV 89.2 (80.0-94.0) fL MCH 30.1 (27.0-31.0) pg MCHC 33.7 (33.0-37.0) g/dL RDW 13.6 (11.5-14.5) % Plt Count 87 L (130-400) K/uL MPV 7.4 (7.2-11.7) fL Neut % (Auto) 62.9 (50.0-75.0) % Lymph % (Auto) 21.1 (20.0-40.0) % [place] % (Auto) 13.1 H (0.0-10.0) % Eos % (Auto) 2.2 (0.0-4.0) % Baso % (Auto) 0.7 (0.0-2.0) % Neut # 1.6 L (1.8-7.0) K/uL Lymph # 0.5 L (1.0-4.3) K/uL [place] # 0.3 (0.0-0.8) K/uL Eos # 0.1 (0.0-0.7) K/uL Baso # 0.0 (0.0-0.2) K/uL Puncture Site pCO2 (35-45) mm/Hg pO2 (80-100) mm/Hg HCO3 (21-28) mmol/L ABG pH (7.35-7.45) ABG Total CO2 (22-28) mmol/L ABG O2 Saturation (95-98) % ABG Base Excess (-2.0-3.0) mmol/L ABG Hemoglobin (11.7-17.4) g/dL ABG Carboxyhemoglobin (0.5-1.5) % POC ABG HHb (Measured) (0.0-5.0) % ABG Methemoglobin (0.0-3.0) % Micheal Test A-a O2 Difference mm/Hg Respiratory Index Hgb O2 Saturation (95.0-98.0) % FiO2 % Sodium 135 (132-148) mmol/L Potassium 3.6 (3.6-5.2) mmol/L Chloride 103 (98-107) mmol/L Carbon Dioxide 17 L (22-30) mmol/L Anion Gap 19 (10-20) BUN 7 L (9-20) mg/dL Creatinine 0.5 L (0.8-1.5) MG/DL Est GFR ( Amer) > 60 Est GFR (Non-Af Amer) > 60 POC Glucose (mg/dL) 279 H (65-110) mg/dL Random Glucose 308 H (75-110) mg/dL Calcium 7.9 L (8.6-10.4) mg/dl Phosphorus 1.4 L (2.5-4.5) mg/dL Magnesium 1.9 (1.6-2.3) mg/dL Total Bilirubin 0.7 (0.2-1.3) mg/dL AST 66 H (17-59) U/L ALT 86 H (21-72) U/L Alkaline Phosphatase 126 (38-126) U/L Total Protein 5.3 L (6.3-8.3) g/dL Albumin 3.0 L (3.5-5.0) g/dL Globulin 2.3 (2.2-3.9) gm/dL Albumin/Globulin Ratio 1.3 (1.0-2.1) Triglycerides (0-149) mg/dL Cholesterol (0-199) mg/dL LDL Cholesterol Direct (0-129) mg/dL HDL Cholesterol (30-70) mg/dL Serum Ketones 09/23/16 09/23/16 09/23/16 Range/Units 16:02 14:33 13:46 WBC (4.8-10.8) K/uL RBC (4.40-5.90) Mil/uL Hgb (12.0-18.0) g/dL Hct (35.0-51.0) % MCV (80.0-94.0) fL MCH (27.0-31.0) pg MCHC (33.0-37.0) g/dL RDW (11.5-14.5) % Plt Count (130-400) K/uL MPV (7.2-11.7) fL Neut % (Auto) (50.0-75.0) % Lymph % (Auto) (20.0-40.0) % [place] % (Auto) (0.0-10.0) % Eos % (Auto) (0.0-4.0) % Baso % (Auto) (0.0-2.0) % Neut # (1.8-7.0) K/uL Lymph # (1.0-4.3) K/uL [place] # (0.0-0.8) K/uL Eos # (0.0-0.7) K/uL Baso # (0.0-0.2) K/uL Puncture Site pCO2 (35-45) mm/Hg pO2 (80-100) mm/Hg HCO3 (21-28) mmol/L ABG pH (7.35-7.45) ABG Total CO2 (22-28) mmol/L ABG O2 Saturation (95-98) % ABG Base Excess (-2.0-3.0) mmol/L ABG Hemoglobin (11.7-17.4) g/dL ABG Carboxyhemoglobin (0.5-1.5) % POC ABG HHb (Measured) (0.0-5.0) % ABG Methemoglobin (0.0-3.0) % Micheal Test A-a O2 Difference mm/Hg Respiratory Index Hgb O2 Saturation (95.0-98.0) % FiO2 % Sodium 138 Cancelled (132-148) mmol/L Potassium 3.1 L Cancelled (3.6-5.2) mmol/L Chloride 106 Cancelled (98-107) mmol/L Carbon Dioxide 15 L Cancelled (22-30) mmol/L Anion Gap 20 Cancelled (10-20) BUN 7 L Cancelled (9-20) mg/dL Creatinine 0.4 L Cancelled (0.8-1.5) MG/DL Est GFR ( Amer) > 60 Cancelled Est GFR (Non-Af Amer) > 60 Cancelled POC Glucose (mg/dL) 202 H (65-110) mg/dL Random Glucose 141 H Cancelled (75-110) mg/dL Calcium 8.2 L Cancelled (8.6-10.4) mg/dl Phosphorus 2.1 L Cancelled (2.5-4.5) mg/dL Magnesium 2.2 Cancelled (1.6-2.3) mg/dL Total Bilirubin 0.7 Cancelled (0.2-1.3) mg/dL AST 71 H Cancelled (17-59) U/L ALT 86 H Cancelled (21-72) U/L Alkaline Phosphatase 127 H Cancelled (38-126) U/L Total Protein 5.7 L Cancelled (6.3-8.3) g/dL Albumin 3.0 L Cancelled (3.5-5.0) g/dL Globulin 2.7 Cancelled (2.2-3.9) gm/dL Albumin/Globulin Ratio 1.1 Cancelled (1.0-2.1) Triglycerides (0-149) mg/dL Cholesterol (0-199) mg/dL LDL Cholesterol Direct (0-129) mg/dL HDL Cholesterol (30-70) mg/dL Serum Ketones Moderate Cancelled 09/23/16 09/23/16 09/23/16 Range/Units 11:18 10:17 10:00 WBC (4.8-10.8) K/uL RBC (4.40-5.90) Mil/uL Hgb (12.0-18.0) g/dL Hct (35.0-51.0) % MCV (80.0-94.0) fL MCH (27.0-31.0) pg MCHC (33.0-37.0) g/dL RDW (11.5-14.5) % Plt Count (130-400) K/uL MPV (7.2-11.7) fL Neut % (Auto) (50.0-75.0) % Lymph % (Auto) (20.0-40.0) % [place] % (Auto) (0.0-10.0) % Eos % (Auto) (0.0-4.0) % Baso % (Auto) (0.0-2.0) % Neut # (1.8-7.0) K/uL Lymph # (1.0-4.3) K/uL [place] # (0.0-0.8) K/uL Eos # (0.0-0.7) K/uL Baso # (0.0-0.2) K/uL Puncture Site [place] pCO2 24 L (35-45) mm/Hg pO2 96 (80-100) mm/Hg HCO3 18.4 L (21-28) mmol/L ABG pH 7.40 (7.35-7.45) ABG Total CO2 15.6 L (22-28) mmol/L ABG O2 Saturation 98.0 (95-98) % ABG Base Excess -8.3 L (-2.0-3.0) mmol/L ABG Hemoglobin 11.5 L (11.7-17.4) g/dL ABG Carboxyhemoglobin 0.9 (0.5-1.5) % POC ABG HHb (Measured) 2.0 (0.0-5.0) % ABG Methemoglobin 1.3 (0.0-3.0) % Micheal Test Pos A-a O2 Difference 24.0 mm/Hg Respiratory Index 0.3 Hgb O2 Saturation 95.8 (95.0-98.0) % FiO2 21.0 % Sodium (132-148) mmol/L Potassium (3.6-5.2) mmol/L Chloride (98-107) mmol/L Carbon Dioxide (22-30) mmol/L Anion Gap (10-20) BUN (9-20) mg/dL Creatinine (0.8-1.5) MG/DL Est GFR ( Amer) Est GFR (Non-Af Amer) POC Glucose (mg/dL) 111 H 165 H (65-110) mg/dL Random Glucose (75-110) mg/dL Calcium (8.6-10.4) mg/dl Phosphorus (2.5-4.5) mg/dL Magnesium (1.6-2.3) mg/dL Total Bilirubin (0.2-1.3) mg/dL AST (17-59) U/L ALT (21-72) U/L Alkaline Phosphatase (38-126) U/L Total Protein (6.3-8.3) g/dL Albumin (3.5-5.0) g/dL Globulin (2.2-3.9) gm/dL Albumin/Globulin Ratio (1.0-2.1) Triglycerides (0-149) mg/dL Cholesterol (0-199) mg/dL LDL Cholesterol Direct (0-129) mg/dL HDL Cholesterol (30-70) mg/dL Serum Ketones 09/23/16 09/23/16 09/23/16 Range/Units 09:05 08:02 06:54 WBC (4.8-10.8) K/uL RBC (4.40-5.90) Mil/uL Hgb (12.0-18.0) g/dL Hct (35.0-51.0) % MCV (80.0-94.0) fL MCH (27.0-31.0) pg MCHC (33.0-37.0) g/dL RDW (11.5-14.5) % Plt Count (130-400) K/uL MPV (7.2-11.7) fL Neut % (Auto) (50.0-75.0) % Lymph % (Auto) (20.0-40.0) % [place] % (Auto) (0.0-10.0) % Eos % (Auto) (0.0-4.0) % Baso % (Auto) (0.0-2.0) % Neut # (1.8-7.0) K/uL Lymph # (1.0-4.3) K/uL [place] # (0.0-0.8) K/uL Eos # (0.0-0.7) K/uL Baso # (0.0-0.2) K/uL Puncture Site pCO2 (35-45) mm/Hg pO2 (80-100) mm/Hg HCO3 (21-28) mmol/L ABG pH (7.35-7.45) ABG Total CO2 (22-28) mmol/L ABG O2 Saturation (95-98) % ABG Base Excess (-2.0-3.0) mmol/L ABG Hemoglobin (11.7-17.4) g/dL ABG Carboxyhemoglobin (0.5-1.5) % POC ABG HHb (Measured) (0.0-5.0) % ABG Methemoglobin (0.0-3.0) % Micheal Test A-a O2 Difference mm/Hg Respiratory Index Hgb O2 Saturation (95.0-98.0) % FiO2 % Sodium (132-148) mmol/L Potassium (3.6-5.2) mmol/L Chloride (98-107) mmol/L Carbon Dioxide (22-30) mmol/L Anion Gap (10-20) BUN (9-20) mg/dL Creatinine (0.8-1.5) MG/DL Est GFR ( Amer) Est GFR (Non-Af Amer) POC Glucose (mg/dL) 170 H 196 H 221 H (65-110) mg/dL Random Glucose (75-110) mg/dL Calcium (8.6-10.4) mg/dl Phosphorus (2.5-4.5) mg/dL Magnesium (1.6-2.3) mg/dL Total Bilirubin (0.2-1.3) mg/dL AST (17-59) U/L ALT (21-72) U/L Alkaline Phosphatase (38-126) U/L Total Protein (6.3-8.3) g/dL Albumin (3.5-5.0) g/dL Globulin (2.2-3.9) gm/dL Albumin/Globulin Ratio (1.0-2.1) Triglycerides (0-149) mg/dL Cholesterol (0-199) mg/dL LDL Cholesterol Direct (0-129) mg/dL HDL Cholesterol (30-70) mg/dL Serum Ketones 09/23/16 09/23/16 09/23/16 Range/Units 06:13 05:49 05:49 WBC 3.2 L (4.8-10.8) K/uL RBC 4.13 L (4.40-5.90) Mil/uL Hgb 12.5 (12.0-18.0) g/dL Hct 37.5 (35.0-51.0) % MCV 90.8 (80.0-94.0) fL MCH 30.1 (27.0-31.0) pg MCHC 33.2 (33.0-37.0) g/dL RDW 13.6 (11.5-14.5) % Plt Count 85 L (130-400) K/uL MPV 8.4 (7.2-11.7) fL Neut % (Auto) 66.2 (50.0-75.0) % Lymph % (Auto) 17.8 L (20.0-40.0) % [place] % (Auto) 13.4 H (0.0-10.0) % Eos % (Auto) 2.3 (0.0-4.0) % Baso % (Auto) 0.3 (0.0-2.0) % Neut # 2.1 (1.8-7.0) K/uL Lymph # 0.6 L (1.0-4.3) K/uL [place] # 0.4 (0.0-0.8) K/uL Eos # 0.1 (0.0-0.7) K/uL Baso # 0.0 (0.0-0.2) K/uL Puncture Site pCO2 (35-45) mm/Hg pO2 (80-100) mm/Hg HCO3 (21-28) mmol/L ABG pH (7.35-7.45) ABG Total CO2 (22-28) mmol/L ABG O2 Saturation (95-98) % ABG Base Excess (-2.0-3.0) mmol/L ABG Hemoglobin (11.7-17.4) g/dL ABG Carboxyhemoglobin (0.5-1.5) % POC ABG HHb (Measured) (0.0-5.0) % ABG Methemoglobin (0.0-3.0) % Micheal Test A-a O2 Difference mm/Hg Respiratory Index Hgb O2 Saturation (95.0-98.0) % FiO2 % Sodium 138 (132-148) mmol/L Potassium 3.2 L (3.6-5.2) mmol/L Chloride 109 H (98-107) mmol/L Carbon Dioxide 9 L* D (22-30) mmol/L Anion Gap 23 H (10-20) BUN 7 L (9-20) mg/dL Creatinine 0.4 L (0.8-1.5) MG/DL Est GFR ( Amer) > 60 Est GFR (Non-Af Amer) > 60 POC Glucose (mg/dL) 201 H (65-110) mg/dL Random Glucose 144 H (75-110) mg/dL Calcium 7.9 L (8.6-10.4) mg/dl Phosphorus 1.0 L* (2.5-4.5) mg/dL Magnesium 1.8 (1.6-2.3) mg/dL Total Bilirubin 0.7 (0.2-1.3) mg/dL AST 75 H D (17-59) U/L ALT 82 H (21-72) U/L Alkaline Phosphatase 134 H (38-126) U/L Total Protein 5.5 L (6.3-8.3) g/dL Albumin 2.9 L (3.5-5.0) g/dL Globulin 2.6 (2.2-3.9) gm/dL Albumin/Globulin Ratio 1.1 (1.0-2.1) Triglycerides 72 D (0-149) mg/dL Cholesterol 157 (0-199) mg/dL LDL Cholesterol Direct 44 (0-129) mg/dL HDL Cholesterol 77 H (30-70) mg/dL Serum Ketones 09/23/16 09/23/16 09/23/16 Range/Units 05:19 04:12 03:10 WBC (4.8-10.8) K/uL RBC (4.40-5.90) Mil/uL Hgb (12.0-18.0) g/dL Hct (35.0-51.0) % MCV (80.0-94.0) fL MCH (27.0-31.0) pg MCHC (33.0-37.0) g/dL RDW (11.5-14.5) % Plt Count (130-400) K/uL MPV (7.2-11.7) fL Neut % (Auto) (50.0-75.0) % Lymph % (Auto) (20.0-40.0) % [place] % (Auto) (0.0-10.0) % Eos % (Auto) (0.0-4.0) % Baso % (Auto) (0.0-2.0) % Neut # (1.8-7.0) K/uL Lymph # (1.0-4.3) K/uL [place] # (0.0-0.8) K/uL Eos # (0.0-0.7) K/uL Baso # (0.0-0.2) K/uL Puncture Site pCO2 (35-45) mm/Hg pO2 (80-100) mm/Hg HCO3 (21-28) mmol/L ABG pH (7.35-7.45) ABG Total CO2 (22-28) mmol/L ABG O2 Saturation (95-98) % ABG Base Excess (-2.0-3.0) mmol/L ABG Hemoglobin (11.7-17.4) g/dL ABG Carboxyhemoglobin (0.5-1.5) % POC ABG HHb (Measured) (0.0-5.0) % ABG Methemoglobin (0.0-3.0) % Micheal Test A-a O2 Difference mm/Hg Respiratory Index Hgb O2 Saturation (95.0-98.0) % FiO2 % Sodium (132-148) mmol/L Potassium (3.6-5.2) mmol/L Chloride (98-107) mmol/L Carbon Dioxide (22-30) mmol/L Anion Gap (10-20) BUN (9-20) mg/dL Creatinine (0.8-1.5) MG/DL Est GFR ( Amer) Est GFR (Non-Af Amer) POC Glucose (mg/dL) 148 H 148 H 202 H (65-110) mg/dL Random Glucose (75-110) mg/dL Calcium (8.6-10.4) mg/dl Phosphorus (2.5-4.5) mg/dL Magnesium (1.6-2.3) mg/dL Total Bilirubin (0.2-1.3) mg/dL AST (17-59) U/L ALT (21-72) U/L Alkaline Phosphatase (38-126) U/L Total Protein (6.3-8.3) g/dL Albumin (3.5-5.0) g/dL Globulin (2.2-3.9) gm/dL Albumin/Globulin Ratio (1.0-2.1) Triglycerides (0-149) mg/dL Cholesterol (0-199) mg/dL LDL Cholesterol Direct (0-129) mg/dL HDL Cholesterol (30-70) mg/dL Serum Ketones 09/23/16 09/23/16 09/22/16 Range/Units 01:59 01:19 23:59 WBC (4.8-10.8) K/uL RBC (4.40-5.90) Mil/uL Hgb (12.0-18.0) g/dL Hct (35.0-51.0) % MCV (80.0-94.0) fL MCH (27.0-31.0) pg MCHC (33.0-37.0) g/dL RDW (11.5-14.5) % Plt Count (130-400) K/uL MPV (7.2-11.7) fL Neut % (Auto) (50.0-75.0) % Lymph % (Auto) (20.0-40.0) % [place] % (Auto) (0.0-10.0) % Eos % (Auto) (0.0-4.0) % Baso % (Auto) (0.0-2.0) % Neut # (1.8-7.0) K/uL Lymph # (1.0-4.3) K/uL [place] # (0.0-0.8) K/uL Eos # (0.0-0.7) K/uL Baso # (0.0-0.2) K/uL Puncture Site pCO2 (35-45) mm/Hg pO2 (80-100) mm/Hg HCO3 (21-28) mmol/L ABG pH (7.35-7.45) ABG Total CO2 (22-28) mmol/L ABG O2 Saturation (95-98) % ABG Base Excess (-2.0-3.0) mmol/L ABG Hemoglobin (11.7-17.4) g/dL ABG Carboxyhemoglobin (0.5-1.5) % POC ABG HHb (Measured) (0.0-5.0) % ABG Methemoglobin (0.0-3.0) % Micheal Test A-a O2 Difference mm/Hg Respiratory Index Hgb O2 Saturation (95.0-98.0) % FiO2 % Sodium (132-148) mmol/L Potassium (3.6-5.2) mmol/L Chloride (98-107) mmol/L Carbon Dioxide (22-30) mmol/L Anion Gap (10-20) BUN (9-20) mg/dL Creatinine (0.8-1.5) MG/DL Est GFR ( Amer) Est GFR (Non-Af Amer) POC Glucose (mg/dL) 211 H 196 H 132 H (65-110) mg/dL Random Glucose (75-110) mg/dL Calcium (8.6-10.4) mg/dl Phosphorus (2.5-4.5) mg/dL Magnesium (1.6-2.3) mg/dL Total Bilirubin (0.2-1.3) mg/dL AST (17-59) U/L ALT (21-72) U/L Alkaline Phosphatase (38-126) U/L Total Protein (6.3-8.3) g/dL Albumin (3.5-5.0) g/dL Globulin (2.2-3.9) gm/dL Albumin/Globulin Ratio (1.0-2.1) Triglycerides (0-149) mg/dL Cholesterol (0-199) mg/dL LDL Cholesterol Direct (0-129) mg/dL HDL Cholesterol (30-70) mg/dL Serum Ketones 09/22/16 09/22/16 Range/Units 23:01 22:10 WBC (4.8-10.8) K/uL RBC (4.40-5.90) Mil/uL Hgb (12.0-18.0) g/dL Hct (35.0-51.0) % MCV (80.0-94.0) fL MCH (27.0-31.0) pg MCHC (33.0-37.0) g/dL RDW (11.5-14.5) % Plt Count (130-400) K/uL MPV (7.2-11.7) fL Neut % (Auto) (50.0-75.0) % Lymph % (Auto) (20.0-40.0) % [place] % (Auto) (0.0-10.0) % Eos % (Auto) (0.0-4.0) % Baso % (Auto) (0.0-2.0) % Neut # (1.8-7.0) K/uL Lymph # (1.0-4.3) K/uL [place] # (0.0-0.8) K/uL Eos # (0.0-0.7) K/uL Baso # (0.0-0.2) K/uL Puncture Site pCO2 (35-45) mm/Hg pO2 (80-100) mm/Hg HCO3 (21-28) mmol/L ABG pH (7.35-7.45) ABG Total CO2 (22-28) mmol/L ABG O2 Saturation (95-98) % ABG Base Excess (-2.0-3.0) mmol/L ABG Hemoglobin (11.7-17.4) g/dL ABG Carboxyhemoglobin (0.5-1.5) % POC ABG HHb (Measured) (0.0-5.0) % ABG Methemoglobin (0.0-3.0) % Micheal Test A-a O2 Difference mm/Hg Respiratory Index Hgb O2 Saturation (95.0-98.0) % FiO2 % Sodium 138 (132-148) mmol/L Potassium 3.2 L (3.6-5.2) mmol/L Chloride 107 (98-107) mmol/L Carbon Dioxide 12 L (22-30) mmol/L Anion Gap 22 H (10-20) BUN 9 (9-20) mg/dL Creatinine 0.5 L (0.8-1.5) MG/DL Est GFR ( Amer) > 60 Est GFR (Non-Af Amer) > 60 POC Glucose (mg/dL) 140 H (65-110) mg/dL Random Glucose 106 (75-110) mg/dL Calcium 8.0 L (8.6-10.4) mg/dl Phosphorus 2.1 L (2.5-4.5) mg/dL Magnesium 2.1 (1.6-2.3) mg/dL Total Bilirubin (0.2-1.3) mg/dL AST (17-59) U/L ALT (21-72) U/L Alkaline Phosphatase (38-126) U/L Total Protein (6.3-8.3) g/dL Albumin (3.5-5.0) g/dL Globulin (2.2-3.9) gm/dL Albumin/Globulin Ratio (1.0-2.1) Triglycerides (0-149) mg/dL Cholesterol (0-199) mg/dL LDL Cholesterol Direct (0-129) mg/dL HDL Cholesterol (30-70) mg/dL Serum Ketones Laboratory Results - last 24 hr 09/22/16 09/22/16 09/22/16 22:10 23:01 23:59 WBC RBC Hgb Hct MCV MCH MCHC RDW Plt Count MPV Neut % (Auto) Lymph % (Auto) [place] % (Auto) Eos % (Auto) Baso % (Auto) Neut # Lymph # [place] # Eos # Baso # Puncture Site pCO2 pO2 HCO3 ABG pH ABG Total CO2 ABG O2 Saturation ABG Base Excess ABG Hemoglobin ABG Carboxyhemoglobin POC ABG HHb (Measured) ABG Methemoglobin Micheal Test A-a O2 Difference Respiratory Index Hgb O2 Saturation FiO2 Sodium 138 Potassium 3.2 L Chloride 107 Carbon Dioxide 12 L Anion Gap 22 H BUN 9 Creatinine 0.5 L Est GFR ( Amer) > 60 Est GFR (Non-Af Amer) > 60 POC Glucose (mg/dL) 140 H 132 H Random Glucose 106 Calcium 8.0 L Phosphorus 2.1 L Magnesium 2.1 Total Bilirubin AST ALT Alkaline Phosphatase Total Protein Albumin Globulin Albumin/Globulin Ratio Triglycerides Cholesterol LDL Cholesterol Direct HDL Cholesterol Serum Ketones 09/23/16 09/23/16 09/23/16 01:19 01:59 03:10 WBC RBC Hgb Hct MCV MCH MCHC RDW Plt Count MPV Neut % (Auto) Lymph % (Auto) [place] % (Auto) Eos % (Auto) Baso % (Auto) Neut # Lymph # [place] # Eos # Baso # Puncture Site pCO2 pO2 HCO3 ABG pH ABG Total CO2 ABG O2 Saturation ABG Base Excess ABG Hemoglobin ABG Carboxyhemoglobin POC ABG HHb (Measured) ABG Methemoglobin Micheal Test A-a O2 Difference Respiratory Index Hgb O2 Saturation FiO2 Sodium Potassium Chloride Carbon Dioxide Anion Gap BUN Creatinine Est GFR ( Amer) Est GFR (Non-Af Amer) POC Glucose (mg/dL) 196 H 211 H 202 H Random Glucose Calcium Phosphorus Magnesium Total Bilirubin AST ALT Alkaline Phosphatase Total Protein Albumin Globulin Albumin/Globulin Ratio Triglycerides Cholesterol LDL Cholesterol Direct HDL Cholesterol Serum Ketones 09/23/16 09/23/16 09/23/16 04:12 05:19 05:49 WBC 3.2 L RBC 4.13 L Hgb 12.5 Hct 37.5 MCV 90.8 MCH 30.1 MCHC 33.2 RDW 13.6 Plt Count 85 L MPV 8.4 Neut % (Auto) 66.2 Lymph % (Auto) 17.8 L [place] % (Auto) 13.4 H Eos % (Auto) 2.3 Baso % (Auto) 0.3 Neut # 2.1 Lymph # 0.6 L [place] # 0.4 Eos # 0.1 Baso # 0.0 Puncture Site pCO2 pO2 HCO3 ABG pH ABG Total CO2 ABG O2 Saturation ABG Base Excess ABG Hemoglobin ABG Carboxyhemoglobin POC ABG HHb (Measured) ABG Methemoglobin Micheal Test A-a O2 Difference Respiratory Index Hgb O2 Saturation FiO2 Sodium Potassium Chloride Carbon Dioxide Anion Gap BUN Creatinine Est GFR ( Amer) Est GFR (Non-Af Amer) POC Glucose (mg/dL) 148 H 148 H Random Glucose Calcium Phosphorus Magnesium Total Bilirubin AST ALT Alkaline Phosphatase Total Protein Albumin Globulin Albumin/Globulin Ratio Triglycerides Cholesterol LDL Cholesterol Direct HDL Cholesterol Serum Ketones 09/23/16 09/23/16 09/23/16 05:49 06:13 06:54 WBC RBC Hgb Hct MCV MCH MCHC RDW Plt Count MPV Neut % (Auto) Lymph % (Auto) [place] % (Auto) Eos % (Auto) Baso % (Auto) Neut # Lymph # [place] # Eos # Baso # Puncture Site pCO2 pO2 HCO3 ABG pH ABG Total CO2 ABG O2 Saturation ABG Base Excess ABG Hemoglobin ABG Carboxyhemoglobin POC ABG HHb (Measured) ABG Methemoglobin Micheal Test A-a O2 Difference Respiratory Index Hgb O2 Saturation FiO2 Sodium 138 Potassium 3.2 L Chloride 109 H Carbon Dioxide 9 L* D Anion Gap 23 H BUN 7 L Creatinine 0.4 L Est GFR ( Amer) > 60 Est GFR (Non-Af Amer) > 60 POC Glucose (mg/dL) 201 H 221 H Random Glucose 144 H Calcium 7.9 L Phosphorus 1.0 L* Magnesium 1.8 Total Bilirubin 0.7 AST 75 H D ALT 82 H Alkaline Phosphatase 134 H Total Protein 5.5 L Albumin 2.9 L Globulin 2.6 Albumin/Globulin Ratio 1.1 Triglycerides 72 D Cholesterol 157 LDL Cholesterol Direct 44 HDL Cholesterol 77 H Serum Ketones 09/23/16 09/23/16 09/23/16 08:02 09:05 10:00 WBC RBC Hgb Hct MCV MCH MCHC RDW Plt Count MPV Neut % (Auto) Lymph % (Auto) [place] % (Auto) Eos % (Auto) Baso % (Auto) Neut # Lymph # [place] # Eos # Baso # Puncture Site [place] pCO2 24 L pO2 96 HCO3 18.4 L ABG pH 7.40 ABG Total CO2 15.6 L ABG O2 Saturation 98.0 ABG Base Excess -8.3 L ABG Hemoglobin 11.5 L ABG Carboxyhemoglobin 0.9 POC ABG HHb (Measured) 2.0 ABG Methemoglobin 1.3 Micheal Test Pos A-a O2 Difference 24.0 Respiratory Index 0.3 Hgb O2 Saturation 95.8 FiO2 21.0 Sodium Potassium Chloride Carbon Dioxide Anion Gap BUN Creatinine Est GFR ( Amer) Est GFR (Non-Af Amer) POC Glucose (mg/dL) 196 H 170 H Random Glucose Calcium Phosphorus Magnesium Total Bilirubin AST ALT Alkaline Phosphatase Total Protein Albumin Globulin Albumin/Globulin Ratio Triglycerides Cholesterol LDL Cholesterol Direct HDL Cholesterol Serum Ketones 09/23/16 09/23/16 09/23/16 10:17 11:18 13:46 WBC RBC Hgb Hct MCV MCH MCHC RDW Plt Count MPV Neut % (Auto) Lymph % (Auto) [place] % (Auto) Eos % (Auto) Baso % (Auto) Neut # Lymph # [place] # Eos # Baso # Puncture Site pCO2 pO2 HCO3 ABG pH ABG Total CO2 ABG O2 Saturation ABG Base Excess ABG Hemoglobin ABG Carboxyhemoglobin POC ABG HHb (Measured) ABG Methemoglobin Micheal Test A-a O2 Difference Respiratory Index Hgb O2 Saturation FiO2 Sodium Cancelled Potassium Cancelled Chloride Cancelled Carbon Dioxide Cancelled Anion Gap Cancelled BUN Cancelled Creatinine Cancelled Est GFR ( Amer) Cancelled Est GFR (Non-Af Amer) Cancelled POC Glucose (mg/dL) 165 H 111 H Random Glucose Cancelled Calcium Cancelled Phosphorus Cancelled Magnesium Cancelled Total Bilirubin Cancelled AST Cancelled ALT Cancelled Alkaline Phosphatase Cancelled Total Protein Cancelled Albumin Cancelled Globulin Cancelled Albumin/Globulin Ratio Cancelled Triglycerides Cholesterol LDL Cholesterol Direct HDL Cholesterol Serum Ketones Cancelled 09/23/16 09/23/16 09/23/16 14:33 16:02 20:36 WBC 2.6 L RBC 3.86 L Hgb 11.6 L Hct 34.4 L MCV 89.2 MCH 30.1 MCHC 33.7 RDW 13.6 Plt Count 87 L MPV 7.4 Neut % (Auto) 62.9 Lymph % (Auto) 21.1 [place] % (Auto) 13.1 H Eos % (Auto) 2.2 Baso % (Auto) 0.7 Neut # 1.6 L Lymph # 0.5 L [place] # 0.3 Eos # 0.1 Baso # 0.0 Puncture Site pCO2 pO2 HCO3 ABG pH ABG Total CO2 ABG O2 Saturation ABG Base Excess ABG Hemoglobin ABG Carboxyhemoglobin POC ABG HHb (Measured) ABG Methemoglobin Micheal Test A-a O2 Difference Respiratory Index Hgb O2 Saturation FiO2 Sodium 138 Potassium 3.1 L Chloride 106 Carbon Dioxide 15 L Anion Gap 20 BUN 7 L Creatinine 0.4 L Est GFR ( Amer) > 60 Est GFR (Non-Af Amer) > 60 POC Glucose (mg/dL) 202 H Random Glucose 141 H Calcium 8.2 L Phosphorus 2.1 L Magnesium 2.2 Total Bilirubin 0.7 AST 71 H ALT 86 H Alkaline Phosphatase 127 H Total Protein 5.7 L Albumin 3.0 L Globulin 2.7 Albumin/Globulin Ratio 1.1 Triglycerides Cholesterol LDL Cholesterol Direct HDL Cholesterol Serum Ketones Moderate 09/23/16 09/23/16 20:36 21:12 WBC RBC Hgb Hct MCV MCH MCHC RDW Plt Count MPV Neut % (Auto) Lymph % (Auto) [place] % (Auto) Eos % (Auto) Baso % (Auto) Neut # Lymph # [place] # Eos # Baso # Puncture Site pCO2 pO2 HCO3 ABG pH ABG Total CO2 ABG O2 Saturation ABG Base Excess ABG Hemoglobin ABG Carboxyhemoglobin POC ABG HHb (Measured) ABG Methemoglobin Micheal Test A-a O2 Difference Respiratory Index Hgb O2 Saturation FiO2 Sodium 135 Potassium 3.6 Chloride 103 Carbon Dioxide 17 L Anion Gap 19 BUN 7 L Creatinine 0.5 L Est GFR ( Amer) > 60 Est GFR (Non-Af Amer) > 60 POC Glucose (mg/dL) 279 H Random Glucose 308 H Calcium 7.9 L Phosphorus 1.4 L Magnesium 1.9 Total Bilirubin 0.7 AST 66 H ALT 86 H Alkaline Phosphatase 126 Total Protein 5.3 L Albumin 3.0 L Globulin 2.3 Albumin/Globulin Ratio 1.3 Triglycerides Cholesterol LDL Cholesterol Direct HDL Cholesterol Serum Ketones Fingerstick Blood Sugar Results: 279 Critical Care Progress Note - Nutrition Nutrition: Nutrition Category Date Time Status Heart Healthy Diet [DIET] Diets 09/23/16 Dinner Active Assessment/Plan (1) DKA (diabetic ketoacidosis) Assessment and plan: Patient with the diabetes, noncompliance, also alcoholic abuse. Patient also possibly has a diabetic ketoacidosis, and alcoholic ketoacidosis. Improving at this time. Continue the IV hydration. Electrolyte supplementation. We'll follow the patient. Patient is be transferred to floor tomorrow Current Visit: Yes Status: Acute (2) Uncontrolled diabetes mellitus Current Visit: No Status: Acute Comment: Received lantus, novalog, syringes , lancets, test strips, and glucometer from pharmacy-given to patient. Patient to follow up with [facility] clinic within 1 week Patient instructed on proper use of home insulin and accuchecks, and not to take insulin when skipping meals (3) Hypertension Current Visit: No Status: Chronic Comment: Patient to follow up with [facility] clinic within 1 week Lisinopril RX given All instructions explained to pt. Pt understands and agrees.
[2016-09-24] MEDS: Potassium Chl 40 mEq in D5-1/2 1,000 ML IV SCH (03:01)
[2016-09-24 06:28] LABS: BASO % 0.7 % (0.0-2.0); EOS # 0.1 K/uL (0.0-0.7); EOS % 3.9 % (0.0-4.0); HEMATOCRIT 34.5 % (35.0-51.0); LYMPH # 0.7 K/uL (1.0-4.3); LYMPH % 30.4 % (20.0-40.0); MEAN CELL VOLUME 89.7 fL (80.0-94.0); MEAN CORPUSCULAR HEMOGLOBIN 30.2 pg (27.0-31.0); MEAN CORPUSCULAR HGB CONC 33.7 g/dL (33.0-37.0); MEAN PLATELET VOLUME 8.8 fL (7.2-11.7); MONO # 0.3 K/uL (0.0-0.8); MONO % 14.5 % (0.0-10.0); NRBC % 0.1 % (0.0-2.0); RED CELL DISTRIBUTION WIDTH 13.4 % (11.5-14.5); WHITE BLOOD COUNT 2.3 K/uL (4.8-10.8)
[2016-09-24 06:31] LABS: CHLORIDE 100 mmol/L (98-107)
[2016-09-24 06:32] LABS: POTASSIUM 3.4 mmol/L (3.6-5.2); SODIUM 133 mmol/L (132-148)
[2016-09-24 06:34] LABS: ALB/GLOB RATIO 1.2 (1.0-2.1); ALKALINE PHOSPHATASE 138 U/L (38-126); AST/SGOT 67 U/L (17-59); BILIRUBIN,TOTAL 0.8 mg/dL (0.2-1.3); BLOOD UREA NITROGEN 6 mg/dL (9-20); CARBON DIOXIDE 18 mmol/L (22-30); GFR AFRICAN-AMERICAN > 60; GLUCOSE,RANDOM 306 mg/dL (75-110); PHOSPHOROUS 2.4 mg/dL (2.5-4.5); TOTAL PROTEIN 5.8 g/dL (6.3-8.3)
[2016-09-24 06:35] LABS: ALT/SGPT 81 U/L (21-72); CALCIUM 8.8 mg/dl (8.6-10.4); MAGNESIUM 1.7 mg/dL (1.6-2.3)
[2016-09-24] MEDS ORDERED: Potassium Chloride 20 mEq ER Tab PO ONE ×2 (07:07→08:43)
[2016-09-24] MEDS ORDERED: Magnesium Sulfate 1 gm in D5W 1 GM/100 ML BAG IVPB ONE ×2 (07:10→08:43)
[2016-09-24] MEDS ORDERED: Potassium Phosphate 3 mmol/ml Inj IV ONE (07:10)
[2016-09-24] MEDS ORDERED: Sodium Phosphate 15 MMOLE in Sodium Chloride 0.9% 250 ML IVPB ONE (07:28)
[2016-09-24] MEDS: (Novolin R) Insulin Human Regular 100 units/ml vial SC SCH ×4 (08:00→21:09)
--- NOTE | 2016-09-24 08:34 | RAD ---
Chest x-ray single frontal view History: Infiltrate. Comparison: 09/22/2016 Findings: Persistent prominent linear consolidative markings at the right lung base suggestive for infiltrate and or atelectasis. Remainder of the lung virk appear overall improved since the prior study. Upper lobe granulomatous changes. Heart size within normal limits. Impression: Persistent prominent linear consolidative markings at the right lung base suggestive for infiltrate and or atelectasis.
[2016-09-24] MEDS: (Lantus) Insulin Glargine, Recombinant SC SCH ×2 (09:13→21:16)
[2016-09-24] MEDS: Azithromycin 500 MG in Sodium Chloride 0.9% 250 ML IVPB SCH (09:17)
[2016-09-24] MEDS: Pantoprazole 20 mg EC Tab PO SCH (09:17)
[2016-09-24] MEDS: Sodium Chloride 0.9% 1,000 ML IV SCH ×2 (09:30→19:15)
--- NOTE | 2016-09-24 16:35 | CP.CCUPN ---
CCU Subjective - Physician Review Subjective (Free Text): 09/24/16 16:19 Patient seen and examined at bedside. No acute events overnight. No acute distress. Nursing staff reports that patient was able to tolerate sufficient water intake and regular diet. Patient only complains of cough with mucus production, which has been constant since admission. Patient's condition has overall improved. Patient denies fever, chills, N/V/D/C, chest pain, SOB, abdominal pain, and numbness or tingling. Today, patient is scheduled for transfer to medical floor. Anion gap is improving, currently 15. POC glucose was noted to be 330; repeat POC was 210. Will continue sliding scale insulin and monitor. The patient's magnesium, phosphorous, and potassium were also replaced. Critical Care Time Spent (in minutes): 90 CCU Objective - Vital Signs / Intake & Output Intake and Output (Last 8hrs): Intake & Output 09/24/16 09/24/16 09/24/16 06:59 14:59 22:59 Intake Total 2550 1800 Output Total 2200 750 Balance 350 1050 Weight 61.235 kg Intake: Intake, IV Amount 1000 900 Left Distal Port 800 500 Antecubital Left Proximal Port 250 Antecubital Right Distal Port 200 100 Antecubital Right Medial Port 0 50 Antecubital Oral 1550 900 Output: Urine 2200 750 Urine, Voided 2200 750 Other: # Bowel Movements 0 0 - Physical Exam Head: Positive for: Atraumatic, Normocephalic Pupils: Positive for: PERRL Extroacular Muscles: Positive for: EOMI Conjunctiva: Positive for: Normal Mouth: Positive for: Moist Mucous Membranes. Negative for: Drooling Neck: Positive for: Normal Range of Motion. Negative for: JVD, Lymphadenopathy Respiratory/Chest: Positive for: Clear to Auscultation, Good Air Exchange. Negative for: Respiratory Distress, Accessory Muscle Use, Wheezes, Rales Cardiovascular: Positive for: Regular Rate and Rhythm, Normal S1, S2, Peripheal Pulses Present. Negative for: Murmurs Abdomen: Positive for: Tenderness, Normal Bowel Sounds. Negative for: Distention, Peritoneal Signs, Rebound, Guarding Back: Positive for: Normal Inspection. Negative for: CVA Tenderness Upper Extremity: Positive for: Normal Inspection, Normal ROM, NORMAL PULSES, Neurovascularly Intact. Negative for: Cyanosis, Edema, Tenderness Lower Extremity: Positive for: Normal Inspection, NORMAL PULSES, Normal ROM, Neurovascularly Intact. Negative for: Edema, CALF TENDERNESS, Tenderness Neurological: Positive for: CN II-XII Intact, Speech Normal Skin: Positive for: Warm, Dry, Normal Color. Negative for: Rashes Psychiatric: Positive for: Alert, Oriented x 3 - Medications Active Medications: Active Medications Generic Name Dose Route Start Last Admin Trade Name Freq PRN Reason Stop Dose Admin Chlordiazepoxide 5 mg 09/24/16 10:00 09/24/16 09:13 Librium PO 09/26/16 10:01 5 mg DAILY JV Administration Gabapentin 100 mg 09/22/16 18:00 09/24/16 13:37 Neurontin PO 100 mg TID JV Administration Azithromycin 500 mg/ Sodium 250 mls @ 250 mls/hr 09/22/16 11:00 09/24/16 09: 17 Chloride IVPB 250 mls/hr DAILY JV Administration Ceftriaxone Sodium 1 gm/ 100 mls @ 100 mls/hr 09/23/16 10:00 09/24/16 09:17 Sodium Chloride IVPB 100 mls/hr DAILY JV Administration Sodium Chloride 1,000 mls @ 100 mls/hr 09/24/16 09:15 09/24/16 09:30 Sodium Chloride 0.9% IV 100 mls/hr .Q10H JV Administration Insulin Glargine 15 unit 09/24/16 10:00 09/24/16 09:13 Lantus SC 15 u Q12 JV Administration Insulin Human Regular 0 unit 09/23/16 16:30 09/24/16 11:56 Novolin R SC 3 unit ACHS JV Administration Protocol Pantoprazole Sodium 20 mg 09/23/16 10:00 09/24/16 09:17 Protonix Ec Tab PO 20 mg DAILY JV Administration - Patient Studies Lab Studies: Microbiology Studies 09/22/16 17:00 Blood Culture - Preliminary Blood NO GROWTH AFTER 24 HOURS 09/22/16 17:00 Blood Culture - Preliminary Blood NO GROWTH AFTER 24 HOURS 09/22/16 Unknown MRSA Culture (Admit) - Final Nose MRSA NOT DETECTED 09/22/16 10:33 Urine Culture - Final Urine,Valladares No Growth (<1,000 CFU/ML) Lab Studies 09/24/16 09/24/16 09/24/16 Range/Units 16:10 11:50 07:27 WBC (4.8-10.8) K/uL RBC (4.40-5.90) Mil/uL Hgb (12.0-18.0) g/dL Hct (35.0-51.0) % MCV (80.0-94.0) fL MCH (27.0-31.0) pg MCHC (33.0-37.0) g/dL RDW (11.5-14.5) % Plt Count (130-400) K/uL MPV (7.2-11.7) fL Neut % (Auto) (50.0-75.0) % Lymph % (Auto) (20.0-40.0) % [place] % (Auto) (0.0-10.0) % Eos % (Auto) (0.0-4.0) % Baso % (Auto) (0.0-2.0) % Neut # (1.8-7.0) K/uL Lymph # (1.0-4.3) K/uL [place] # (0.0-0.8) K/uL Eos # (0.0-0.7) K/uL Baso # (0.0-0.2) K/uL Sodium (132-148) mmol/L Potassium (3.6-5.2) mmol/L Chloride (98-107) mmol/L Carbon Dioxide (22-30) mmol/L Anion Gap (10-20) BUN (9-20) mg/dL Creatinine (0.8-1.5) MG/DL Est GFR ( Amer) Est GFR (Non-Af Amer) POC Glucose (mg/dL) 221 H 210 H 330 H (65-110) mg/dL Random Glucose (75-110) mg/dL Hemoglobin A1c (4.2-6.5) % Calcium (8.6-10.4) mg/dl Phosphorus (2.5-4.5) mg/dL Magnesium (1.6-2.3) mg/dL Total Bilirubin (0.2-1.3) mg/dL AST (17-59) U/L ALT (21-72) U/L Alkaline Phosphatase (38-126) U/L Total Protein (6.3-8.3) g/dL Albumin (3.5-5.0) g/dL Globulin (2.2-3.9) gm/dL Albumin/Globulin Ratio (1.0-2.1) 09/24/16 09/24/16 09/23/16 Range/Units 06:20 06:20 21:12 WBC 2.3 L (4.8-10.8) K/uL RBC 3.85 L (4.40-5.90) Mil/uL Hgb 11.6 L (12.0-18.0) g/dL Hct 34.5 L (35.0-51.0) % MCV 89.7 (80.0-94.0) fL MCH 30.2 (27.0-31.0) pg MCHC 33.7 (33.0-37.0) g/dL RDW 13.4 (11.5-14.5) % Plt Count 108 L D (130-400) K/uL MPV 8.8 (7.2-11.7) fL Neut % (Auto) 50.5 (50.0-75.0) % Lymph % (Auto) 30.4 (20.0-40.0) % [place] % (Auto) 14.5 H (0.0-10.0) % Eos % (Auto) 3.9 (0.0-4.0) % Baso % (Auto) 0.7 (0.0-2.0) % Neut # 1.2 L (1.8-7.0) K/uL Lymph # 0.7 L (1.0-4.3) K/uL [place] # 0.3 (0.0-0.8) K/uL Eos # 0.1 (0.0-0.7) K/uL Baso # 0.0 (0.0-0.2) K/uL Sodium 133 (132-148) mmol/L Potassium 3.4 L (3.6-5.2) mmol/L Chloride 100 (98-107) mmol/L Carbon Dioxide 18 L (22-30) mmol/L Anion Gap 18 (10-20) BUN 6 L (9-20) mg/dL Creatinine 0.4 L (0.8-1.5) MG/DL Est GFR ( Amer) > 60 Est GFR (Non-Af Amer) > 60 POC Glucose (mg/dL) 279 H (65-110) mg/dL Random Glucose 306 H (75-110) mg/dL Hemoglobin A1c (4.2-6.5) % Calcium 8.8 (8.6-10.4) mg/dl Phosphorus 2.4 L (2.5-4.5) mg/dL Magnesium 1.7 (1.6-2.3) mg/dL Total Bilirubin 0.8 (0.2-1.3) mg/dL AST 67 H (17-59) U/L ALT 81 H (21-72) U/L Alkaline Phosphatase 138 H (38-126) U/L Total Protein 5.8 L (6.3-8.3) g/dL Albumin 3.2 L (3.5-5.0) g/dL Globulin 2.7 (2.2-3.9) gm/dL Albumin/Globulin Ratio 1.2 (1.0-2.1) 09/23/16 09/23/16 09/22/16 Range/Units 20:36 20:36 10:08 WBC 2.6 L (4.8-10.8) K/uL RBC 3.86 L (4.40-5.90) Mil/uL Hgb 11.6 L (12.0-18.0) g/dL Hct 34.4 L (35.0-51.0) % MCV 89.2 (80.0-94.0) fL MCH 30.1 (27.0-31.0) pg MCHC 33.7 (33.0-37.0) g/dL RDW 13.6 (11.5-14.5) % Plt Count 87 L (130-400) K/uL MPV 7.4 (7.2-11.7) fL Neut % (Auto) 62.9 (50.0-75.0) % Lymph % (Auto) 21.1 (20.0-40.0) % [place] % (Auto) 13.1 H (0.0-10.0) % Eos % (Auto) 2.2 (0.0-4.0) % Baso % (Auto) 0.7 (0.0-2.0) % Neut # 1.6 L (1.8-7.0) K/uL Lymph # 0.5 L (1.0-4.3) K/uL [place] # 0.3 (0.0-0.8) K/uL Eos # 0.1 (0.0-0.7) K/uL Baso # 0.0 (0.0-0.2) K/uL Sodium 135 (132-148) mmol/L Potassium 3.6 (3.6-5.2) mmol/L Chloride 103 (98-107) mmol/L Carbon Dioxide 17 L (22-30) mmol/L Anion Gap 19 (10-20) BUN 7 L (9-20) mg/dL Creatinine 0.5 L (0.8-1.5) MG/DL Est GFR ( Amer) > 60 Est GFR (Non-Af Amer) > 60 POC Glucose (mg/dL) (65-110) mg/dL Random Glucose 308 H (75-110) mg/dL Hemoglobin A1c 12.1 H (4.2-6.5) % Calcium 7.9 L (8.6-10.4) mg/dl Phosphorus 1.4 L (2.5-4.5) mg/dL Magnesium 1.9 (1.6-2.3) mg/dL Total Bilirubin 0.7 (0.2-1.3) mg/dL AST 66 H (17-59) U/L ALT 86 H (21-72) U/L Alkaline Phosphatase 126 (38-126) U/L Total Protein 5.3 L (6.3-8.3) g/dL Albumin 3.0 L (3.5-5.0) g/dL Globulin 2.3 (2.2-3.9) gm/dL Albumin/Globulin Ratio 1.3 (1.0-2.1) Laboratory Results - last 24 hr 09/22/16 09/23/16 09/23/16 10:08 20:36 20:36 WBC 2.6 L RBC 3.86 L Hgb 11.6 L Hct 34.4 L MCV 89.2 MCH 30.1 MCHC 33.7 RDW 13.6 Plt Count 87 L MPV 7.4 Neut % (Auto) 62.9 Lymph % (Auto) 21.1 [place] % (Auto) 13.1 H Eos % (Auto) 2.2 Baso % (Auto) 0.7 Neut # 1.6 L Lymph # 0.5 L [place] # 0.3 Eos # 0.1 Baso # 0.0 Sodium 135 Potassium 3.6 Chloride 103 Carbon Dioxide 17 L Anion Gap 19 BUN 7 L Creatinine 0.5 L Est GFR ( Amer) > 60 Est GFR (Non-Af Amer) > 60 POC Glucose (mg/dL) Random Glucose 308 H Hemoglobin A1c 12.1 H Calcium 7.9 L Phosphorus 1.4 L Magnesium 1.9 Total Bilirubin 0.7 AST 66 H ALT 86 H Alkaline Phosphatase 126 Total Protein 5.3 L Albumin 3.0 L Globulin 2.3 Albumin/Globulin Ratio 1.3 09/23/16 09/24/16 09/24/16 21:12 06:20 06:20 WBC 2.3 L RBC 3.85 L Hgb 11.6 L Hct 34.5 L MCV 89.7 MCH 30.2 MCHC 33.7 RDW 13.4 Plt Count 108 L D MPV 8.8 Neut % (Auto) 50.5 Lymph % (Auto) 30.4 [place] % (Auto) 14.5 H Eos % (Auto) 3.9 Baso % (Auto) 0.7 Neut # 1.2 L Lymph # 0.7 L [place] # 0.3 Eos # 0.1 Baso # 0.0 Sodium 133 Potassium 3.4 L Chloride 100 Carbon Dioxide 18 L Anion Gap 18 BUN 6 L Creatinine 0.4 L Est GFR ( Amer) > 60 Est GFR (Non-Af Amer) > 60 POC Glucose (mg/dL) 279 H Random Glucose 306 H Hemoglobin A1c Calcium 8.8 Phosphorus 2.4 L Magnesium 1.7 Total Bilirubin 0.8 AST 67 H ALT 81 H Alkaline Phosphatase 138 H Total Protein 5.8 L Albumin 3.2 L Globulin 2.7 Albumin/Globulin Ratio 1.2 09/24/16 09/24/16 09/24/16 07:27 11:50 16:10 WBC RBC Hgb Hct MCV MCH MCHC RDW Plt Count MPV Neut % (Auto) Lymph % (Auto) [place] % (Auto) Eos % (Auto) Baso % (Auto) Neut # Lymph # [place] # Eos # Baso # Sodium Potassium Chloride Carbon Dioxide Anion Gap BUN Creatinine Est GFR ( Amer) Est GFR (Non-Af Amer) POC Glucose (mg/dL) 330 H 210 H 221 H Random Glucose Hemoglobin A1c Calcium Phosphorus Magnesium Total Bilirubin AST ALT Alkaline Phosphatase Total Protein Albumin Globulin Albumin/Globulin Ratio Fingerstick Blood Sugar Results: 210 Review of Systems - Review of Systems All systems: reviewed and no additional remarkable complaints except - EENT Eyes: absent: Blurred Vision, Change in Vision Ears: absent: Ear Pain, Tinnitus Nose/Mouth/Throat: absent: Nose Pain, Facial Pain, Neck Pain - Cardiovascular Cardiovascular: absent: Chest Pain, Palpitations, Syncope - Respiratory Respiratory: absent: Cough, Dyspnea, Dyspnea on Exertion - Gastrointestinal Gastrointestinal: absent: Abdominal Pain, Constipation, Diarrhea, Nausea, Vomiting - Genitourinary Genitourinary: absent: Change in Urinary Stream, Difficulty Urinating - Musculoskeletal Musculoskeletal: absent: Arthralgias, Stiffness, Tingling - Integumentary Integumentary: absent: Lesions, Rash, Wounds - Neurological Neurological: absent: Frequent Falls, Memory Loss, Sensory Deficit, Syncope, Tingling, Tremor, Vertigo, Weakness - Endocrine Endocrine: absent: Cold Intolorance, Heat Intolorance Critical Care Progress Note - Extremities/Vascular Does the Patient have a Central Venous Catheter?: No Does the Patient need a Central Venous Catheter?: No Does the Patient have a [place] Catheter?: No Does the Patient need a [place] Catheter?: No - Prophylaxis GI Prophylaxis GI: PPI - Prophylaxis DVT Prophylaxis DVT: SCDs - Nutrition Nutrition: Nutrition Category Date Time Status Heart Healthy Diet [DIET] Diets 09/23/16 Dinner Active Assessment/Plan (1) DKA (diabetic ketoacidosis) Current Visit: Yes Status: Resolved (2) Alcohol abuse Current Visit: No Status: Chronic (3) Uncontrolled diabetes mellitus Current Visit: No Status: Chronic Comment: Received lantus, novalog, syringes, lancets, test strips, and glucometer from pharmacy-given to patient. Patient to follow up with [facility] clinic within 1 week Patient instructed on proper use of home insulin and accuchecks, and not to take insulin when skipping meals - Assessment and Plan (Free Text) Plan: Patient Status: Stable for transfer to the medical floor Neuro: -A&OX3 -No acute issues Cardiovascular: -hemodynamically stable -history of HTN - lisinopril prescription given -138/99 BP; 113 BPM -EKG 09/22/16: sinus tachycardia with possible left atrial enlargement Pulmonary: -O2 Sat 96% RA -Pneumonia - continue Azithromycin 500mg IV daily and Rocephin 1g IV daily ( started on 09/22/16) -Patient afebrile, tachycardic, hypertensive. No signs of leukocytosis on labs. -Lactate 1.3 -Imaging -CXR (09/22/16): RLL infiltrate; mild pulmonary vascular congestion -repeat CXR (09/24/16): persistent prominent linear consolidative markings at the right lung base suggestive of infiltrate and/or atelectasis -f/u blood culture, urine culture Gastrointestinal: -Imaging: CT abd/pelvis (abdominal pain) 09/22/16: markedly distended urinary bladder Hematology: No issues Endocrine: -DKA (history of noncompliance and recurrent DKA) - -Glucose 472 on admission with mod. Serum ketones -09/24/16: random glucose 306; POC glucose 330; repeat POC 210 -Gap closed (15 this morning on AM labs) - off insulin drip -continue insulin glargine 15 units SC Q12 and novolin insulin sliding scale -HgA1c: 12.1; moderate serum ketones -Electrolyte supplementation -Given IVF potassium replacement (currently 3.4) on 09/23 and 09/24 -also given phosphorus, folic acid, and thiamine -continue NS 100ml/hr -history of alcohol abuse - continue Librium protocol (5mg PO daily); continue gabapentin 100mg PO TID JV -continue to monitor CBC/CMP routinely Renal: No acute events. Continue to monitor renal function Musculoskeletal: -no acute events Genitourinary: -no acute events Infectious disease: -no acute events; WBC 2.3 GI prophylaxis: Protonix 20mg PO Daily DVT prophylaxis: SCDs Case discussed with Dr. Marino Ynag PGY1 - Date & Time Date: 09/24/16 Time: 16:38
--- NOTE | 2016-09-24 18:56 | CP.PCM.PN ---
Subjective - Date & Time of Evaluation Date of Evaluation: 09/24/16 Time of Evaluation: 12:00 - Subjective Subjective: Patient seen and examined in ICU Patient denies any nausea vomiting or abdominal pain. Objective - Vital Signs/Intake and Output Vital Signs (last 24 hours): Temp Pulse Resp BP Pulse Ox 97.9 F 88 14 150/104 H 100 09/24/16 16:00 09/24/16 16:30 09/24/16 16:30 09/24/16 15:15 09/24/16 16:30 Intake and Output: 09/24/16 09/24/16 06:59 18:59 Intake Total 3625 2440 Output Total 3800 1550 Balance -175 890 - Medications Medications: Current Medications Chlordiazepoxide (Librium) 5 mg PO DAILY [facility] Stop: 09/26/16 10:01 Last Admin: 09/24/16 09:13 Dose: 5 mg Gabapentin (Neurontin) 100 mg PO TID [facility] Last Admin: 09/24/16 17:07 Dose: 100 mg Azithromycin 500 mg/ Sodium (Chloride) 250 mls @ 250 mls/hr IVPB DAILY [facility] Last Admin: 09/24/16 09:17 Dose: 250 mls/hr Ceftriaxone Sodium 1 gm/ (Sodium Chloride) 100 mls @ 100 mls/hr IVPB DAILY [facility] Last Admin: 09/24/16 09:17 Dose: 100 mls/hr Sodium Chloride (Sodium Chloride 0.9%) 1,000 mls @ 100 mls/hr IV .Q10H [facility] Last Admin: 09/24/16 09:30 Dose: 100 mls/hr Insulin Glargine (Lantus) 15 unit SC Q12 [facility] Last Admin: 09/24/16 09:13 Dose: 15 u Insulin Human Regular (Novolin R) 0 unit SC ACHS [facility] PRN Reason: Protocol Last Admin: 09/24/16 17:07 Dose: 3 unit Pantoprazole Sodium (Protonix Ec Tab) 20 mg PO DAILY [facility] Last Admin: 09/24/16 09:17 Dose: 20 mg - Labs Labs: 09/24/16 06:20 09/24/16 06:20 - Head Exam Head Exam: ATRAUMATIC, NORMOCEPHALIC - Eye Exam Eye Exam: EOMI, Normal appearance - ENT Exam ENT Exam: Mucous Membranes Moist - Neck Exam Neck Exam: Normal Inspection - Respiratory Exam Respiratory Exam: Clear to Ausculation Bilateral - Cardiovascular Exam Cardiovascular Exam: REGULAR RHYTHM, +S1, +S2 - GI/Abdominal Exam GI & Abdominal Exam: Soft. absent: Tenderness - Extremities Exam Extremities Exam: absent: Pedal Edema - Neurological Exam Neurological Exam: Alert, Oriented x3 Assessment and Plan (1) DKA (diabetic ketoacidosis) Status: Resolved (2) Alcohol dependence Status: Acute - Assessment and Plan (Free Text) Plan: Patient is on Librium taper. Patient is off insulin drip and started on Lantus. Diet has been started. Anion gap is closed. Discussed with ICU team. And management as per ICU team.
[2016-09-25] MEDS: Sodium Chloride 0.9% 1,000 ML IV SCH ×4 (05:15→21:45)
[2016-09-25 06:42] LABS: BASO % 1.1 % (0.0-2.0); EOS % 2.5 % (0.0-4.0); HEMATOCRIT 34.6 % (35.0-51.0); LYMPH # 0.7 K/uL (1.0-4.3); LYMPH % 44.7 % (20.0-40.0); MEAN CELL VOLUME 87.6 fL (80.0-94.0); MEAN CORPUSCULAR HEMOGLOBIN 30.3 pg (27.0-31.0); MEAN CORPUSCULAR HGB CONC 34.6 g/dL (33.0-37.0); MEAN PLATELET VOLUME 7.6 fL (7.2-11.7); MONO # 0.3 K/uL (0.0-0.8); MONO % 16.2 % (0.0-10.0); NRBC % 0.3 % (0.0-2.0); RED CELL DISTRIBUTION WIDTH 13.3 % (11.5-14.5)
[2016-09-25 06:47] LABS: WHITE BLOOD COUNT 1.7 K/uL (4.8-10.8)
[2016-09-25 07:01] LABS: CHLORIDE 96 mmol/L (98-107); SODIUM 134 mmol/L (132-148)
[2016-09-25 07:03] LABS: BILIRUBIN,TOTAL 0.6 mg/dL (0.2-1.3); GFR AFRICAN-AMERICAN > 60
[2016-09-25 07:04] LABS: ALB/GLOB RATIO 1.2 (1.0-2.1); ALKALINE PHOSPHATASE 137 U/L (38-126); ALT/SGPT 73 U/L (21-72); AST/SGOT 52 U/L (17-59); BLOOD UREA NITROGEN 4 mg/dL (9-20); CARBON DIOXIDE 30 mmol/L (22-30); GLUCOSE,RANDOM 139 mg/dL (75-110); PHOSPHOROUS 2.5 mg/dL (2.5-4.5); TOTAL PROTEIN 5.6 g/dL (6.3-8.3)
[2016-09-25 07:05] LABS: CALCIUM 8.8 mg/dl (8.6-10.4); MAGNESIUM 1.6 mg/dL (1.6-2.3)
[2016-09-25 07:11] LABS: POTASSIUM 2.3 mmol/L (3.6-5.2)
[2016-09-25] MEDS ORDERED: Magnesium Sulfate 1 gm in D5W 1 GM/100 ML BAG IVPB SCH (07:45)
[2016-09-25] MEDS: Potassium Chloride 20 mEq ER Tab PO SCH ×2 (08:12→12:30)
[2016-09-25] MEDS: (Novolin R) Insulin Human Regular 100 units/ml vial SC SCH ×4 (08:12→22:35)
[2016-09-25] MEDS: (Lantus) Insulin Glargine, Recombinant SC SCH ×2 (09:22→21:50)
[2016-09-25] MEDS: Azithromycin 500 MG in Sodium Chloride 0.9% 250 ML IVPB SCH (09:23)
[2016-09-25] MEDS: Pantoprazole 20 mg EC Tab PO SCH (09:27)
--- NOTE | 2016-09-25 15:09 | CP.PCM.PN ---
Addendum entered and electronically signed by Audrey Sher DO 09/25/16 15:10: Add Lisinopril 5 mg PO daily. Adjust as indicated. Consider statin and oral DM medications upon discharge. Original Note: <Audrey Sher - Last Filed: 09/25/16 15:01> Subjective - Date & Time of Evaluation Date of Evaluation: 09/25/16 Time of Evaluation: 07:30 - Subjective Subjective: Patient seen and examined at bedside. No acute events overnight. No acute distress. He is able to tolerate sufficient water intake and regular diet without nausea and vomiting. Patient states his cough has improved. Patient's condition has overall improved. Patient denies fever, chills, N/V/D/C, chest pain, SOB, abdominal pain, and numbness or tingling. Objective - Vital Signs/Intake and Output Vital Signs (last 24 hours): Temp Pulse Resp BP Pulse Ox 97.4 F L 92 H 18 145/98 H 99 09/25/16 08:05 09/25/16 08:05 09/25/16 08:05 09/25/16 08:05 09/25/16 08:05 Intake and Output: 09/25/16 09/25/16 06:59 18:59 Intake Total 700 Output Total 1100 Balance -400 - Medications Medications: Current Medications Chlordiazepoxide (Librium) 5 mg PO DAILY [facility] Stop: 09/26/16 10:01 Last Admin: 09/25/16 09:23 Dose: 5 mg Gabapentin (Neurontin) 100 mg PO TID [facility] Last Admin: 09/25/16 13:38 Dose: 100 mg Azithromycin 500 mg/ Sodium (Chloride) 250 mls @ 250 mls/hr IVPB DAILY [facility] Last Admin: 09/25/16 09:23 Dose: 250 mls/hr Ceftriaxone Sodium 1 gm/ (Sodium Chloride) 100 mls @ 100 mls/hr IVPB DAILY [facility] Last Admin: 09/25/16 09:23 Dose: 100 mls/hr Sodium Chloride (Sodium Chloride 0.9%) 1,000 mls @ 100 mls/hr IV .Q10H [facility] Last Admin: 09/25/16 12:29 Dose: 100 mls/hr Insulin Glargine (Lantus) 18 unit SC Q12 [facility] Insulin Human Regular (Novolin R) 0 unit SC ACHS [facility] PRN Reason: Protocol Last Admin: 09/25/16 12:30 Dose: 4 unit Lisinopril (Zestril) 5 mg PO DAILY [facility] Last Admin: 09/25/16 13:39 Dose: 5 mg Pantoprazole Sodium (Protonix Ec Tab) 20 mg PO DAILY [facility] Last Admin: 09/25/16 09:27 Dose: 20 mg - Labs Labs: 09/25/16 06:25 09/25/16 06:26 APTT 29 SECONDS (21-34) 09/25/16 06:28 - Constitutional Appears: Non-toxic, No Acute Distress - Head Exam Head Exam: ATRAUMATIC, NORMAL INSPECTION - Eye Exam Eye Exam: EOMI - ENT Exam ENT Exam: Mucous Membranes Moist - Respiratory Exam Respiratory Exam: Clear to Ausculation Bilateral, NORMAL BREATHING PATTERN. absent: Accessory Muscle Use, Rales, Rhonchi, Wheezes, Respiratory Distress - Cardiovascular Exam Cardiovascular Exam: REGULAR RHYTHM, +S1, +S2 - GI/Abdominal Exam GI & Abdominal Exam: Soft, Normal Bowel Sounds. absent: Distended, Firm, Guarding, Tenderness - Extremities Exam Extremities Exam: Normal Inspection - Back Exam Back Exam: NORMAL INSPECTION - Neurological Exam Neurological Exam: Alert, Awake, CN II-XII Intact, Oriented x3 - Psychiatric Exam Psychiatric exam: Normal Affect, Normal Mood - Skin Skin Exam: Dry, Intact, Normal Color, Warm Assessment and Plan - Assessment and Plan (Free Text) Assessment: Diabetes - DKA (diabetic Ketoacidosis) -DKA (history of noncompliance and recurrent DKA) - -Glucose 472 on admission with mod. Serum ketones -09/24/16: random glucose 306; POC glucose 330; repeat POC 210 -Gap closed (15 this morning on AM labs) - off insulin drip -continue insulin glargine 18 units SC Q12 and novolin insulin sliding scale -HgA1c: 12.1; moderate serum ketones -Electrolyte supplementation K 2.3 - will replace and f/u labs -Given IVF potassium replacement (currently 3.4) on 09/23 and 09/24 -also given phosphorus, folic acid, and thiamine -continue NS 100ml/hr -history of alcohol abuse - continue Librium protocol (5mg PO daily); continue gabapentin 100mg PO TID [facility] -continue to monitor CBC/CMP routinely Alcohol Abuse Seizure/aspiration precautions CIWA Librium taper MV/thiamine/folic acid Pneumonia -O2 Sat 96% RA - continue Azithromycin 500mg IV daily and Rocephin 1g IV daily (started on ) -Patient afebrile, tachycardic, hypertensive. No signs of leukocytosis on labs. -Lactate 1.3 -Imaging -CXR (09/22/16): RLL infiltrate; mild pulmonary vascular congestion -repeat CXR (09/24/16): persistent prominent linear consolidative markings at the right lung base suggestive of infiltrate and/or atelectasis - blood culture, urine culture - both negative Prophylactic NS at 100 cc/hour Protonix 20 mg PO daily <Arian Rodriguez - Last Filed: 09/25/16 15:42> Objective - Vital Signs/Intake and Output Vital Signs (last 24 hours): Temp Pulse Resp BP Pulse Ox 97.4 F L 92 H 18 145/98 H 99 09/25/16 08:05 09/25/16 08:05 09/25/16 08:05 09/25/16 08:05 09/25/16 08:05 Intake and Output: 09/25/16 09/25/16 06:59 18:59 Intake Total 700 1950 Output Total 1100 Balance -400 1950 - Medications Medications: Current Medications Chlordiazepoxide (Librium) 5 mg PO DAILY [facility] Stop: 09/26/16 10:01 Last Admin: 09/25/16 09:23 Dose: 5 mg Folic Acid (Folic Acid) 1 mg PO DAILY [facility] Gabapentin (Neurontin) 100 mg PO TID [facility] Last Admin: 09/25/16 13:38 Dose: 100 mg Azithromycin 500 mg/ Sodium (Chloride) 250 mls @ 250 mls/hr IVPB DAILY [facility] Last Admin: 09/25/16 09:23 Dose: 250 mls/hr Ceftriaxone Sodium 1 gm/ (Sodium Chloride) 100 mls @ 100 mls/hr IVPB DAILY [facility] Last Admin: 09/25/16 09:23 Dose: 100 mls/hr Sodium Chloride (Sodium Chloride 0.9%) 1,000 mls @ 100 mls/hr IV .Q10H [facility] Last Admin: 09/25/16 12:29 Dose: 100 mls/hr Insulin Glargine (Lantus) 18 unit SC Q12 [facility] Insulin Human Regular (Novolin R) 0 unit SC ACHS [facility] PRN Reason: Protocol Last Admin: 09/25/16 12:30 Dose: 4 unit Lisinopril (Zestril) 5 mg PO DAILY [facility] Last Admin: 09/25/16 13:39 Dose: 5 mg Multivitamins (Hexavitamin) 1 tab PO DAILY [facility] Pantoprazole Sodium (Protonix Ec Tab) 20 mg PO DAILY [facility] Last Admin: 09/25/16 09:27 Dose: 20 mg Thiamine HCl (Vitamin B1 Tab) 100 mg PO DAILY [facility] - Labs Labs: 09/25/16 06:25 09/25/16 06:26 APTT 29 SECONDS (21-34) 09/25/16 06:28 Assessment and Plan (1) DKA (diabetic ketoacidosis) Status: Resolved (2) Alcohol dependence Status: Acute Attending/Attestation - Attestation I have personally seen and examined this patient.: Yes I have fully participated in the care of the patient.: Yes I have reviewed all pertinent clinical information, including history, physical exam and plan: Yes Notes (Text): 09/25/16 15:42 Patient was seen and examined at bedside with the resident I discussed the plan of care with the resident and agree with the above history and physical and assessment/plan..
[2016-09-25] MEDS: Multiple Vitamins Tab PO SCH (16:10)
[2016-09-25 17:37] VITALS: RESP 20
[2016-09-25 20:06] LABS: POTASSIUM 3.3 mmol/L (3.6-5.2)
[2016-09-25 20:09] LABS: MAGNESIUM 1.9 mg/dL (1.6-2.3)
[2016-09-25] MEDS ORDERED: Magnesium Sulfate 1 gm in D5W 1 GM/100 ML BAG IVPB ONE (21:30)
[2016-09-26] MEDS: Sodium Chloride 0.9% 1,000 ML IV SCH ×2 (01:15→06:25)
[2016-09-26 02:29] LABS: POTASSIUM 3.5 mmol/L (3.6-5.2)
[2016-09-26 02:33] LABS: MAGNESIUM 2.1 mg/dL (1.6-2.3)
[2016-09-26] MEDS: (Novolin R) Insulin Human Regular 100 units/ml vial SC SCH ×4 (08:17→21:41)
[2016-09-26 08:24] LABS: BASO % 0.8 % (0.0-2.0); EOS % 1.8 % (0.0-4.0); HEMATOCRIT 34.4 % (35.0-51.0); LYMPH # 0.6 K/uL (1.0-4.3); LYMPH % 40.2 % (20.0-40.0); MEAN CELL VOLUME 87.6 fL (80.0-94.0); MEAN CORPUSCULAR HEMOGLOBIN 30.1 pg (27.0-31.0); MEAN CORPUSCULAR HGB CONC 34.3 g/dL (33.0-37.0); MEAN PLATELET VOLUME 7.5 fL (7.2-11.7); MONO # 0.3 K/uL (0.0-0.8); NRBC % 0.4 % (0.0-2.0); RED CELL DISTRIBUTION WIDTH 13.1 % (11.5-14.5)
[2016-09-26 08:26] LABS: WHITE BLOOD COUNT 1.6 K/uL (4.8-10.8)
[2016-09-26 08:27] LABS: PLATELET COUNT 120 K/uL (130-400)
[2016-09-26 08:33] LABS: CHLORIDE 101 mmol/L (98-107); SODIUM 136 mmol/L (132-148)
[2016-09-26 08:34] LABS: POTASSIUM 3.3 mmol/L (3.6-5.2)
[2016-09-26 08:36] LABS: ALB/GLOB RATIO 1.2 (1.0-2.1); ALKALINE PHOSPHATASE 150 U/L (38-126); ALT/SGPT 65 U/L (21-72); AST/SGOT 63 U/L (17-59); BILIRUBIN,TOTAL 0.4 mg/dL (0.2-1.3); BLOOD UREA NITROGEN 6 mg/dL (9-20); CARBON DIOXIDE 27 mmol/L (22-30); GFR AFRICAN-AMERICAN > 60; GLUCOSE,RANDOM 272 mg/dL (75-110); PHOSPHOROUS 3.2 mg/dL (2.5-4.5); TOTAL PROTEIN 5.7 g/dL (6.3-8.3)
[2016-09-26 08:37] LABS: CALCIUM 8.7 mg/dl (8.6-10.4)
[2016-09-26 08:57] LABS: TOTAL CELLS COUNTED 100
[2016-09-26 08:58] LABS: NEUTROPHIL 53 % (50-75)
[2016-09-26] MEDS ORDERED: Potassium Chloride 20 mEq ER Tab PO ONE ×2 (09:15→21:28)
[2016-09-26] MEDS: Multiple Vitamins Tab PO SCH (09:17)
[2016-09-26] MEDS: (Lantus) Insulin Glargine, Recombinant SC SCH (09:18)
[2016-09-26] MEDS: Pantoprazole 20 mg EC Tab PO SCH (09:19)
[2016-09-26] MEDS: Azithromycin 500 MG in Sodium Chloride 0.9% 250 ML IVPB SCH (09:32)
--- NOTE | 2016-09-26 10:23 | CP.PCM.PN ---
<Audrey Sehr - Last Filed: 09/26/16 13:38> Subjective - Date & Time of Evaluation Date of Evaluation: 09/26/16 Time of Evaluation: 07:05 - Subjective Subjective: Pt seen and examined at bedside. Nursing reports no adverse events overnight. Today, pt is comfortable and in no acute distress. He states that he is not experiencing any shakes and nausea. He states that he has a "burning" sensation on either side of his belly button. Pt denies pain, burning or increased frequency in urination. Pt states he sometimes suffers from reflux and heartburn. Pt's last BM was this morning. Pt denies fever, chills, headache, dizziness, nausea, vomiting, diarrhea, constipation, leg pain/swelling. Pt is tolerating diet well. Objective - Vital Signs/Intake and Output Vital Signs (last 24 hours): Temp Pulse Resp BP Pulse Ox 98 F 93 H 20 128/93 H 97 09/26/16 08:00 09/26/16 08:00 09/26/16 08:00 09/26/16 08:00 09/26/16 08:00 Intake and Output: 09/26/16 09/26/16 06:59 18:59 Intake Total 2240 Balance 2240 - Medications Medications: Current Medications Folic Acid (Folic Acid) 1 mg PO DAILY [facility] Last Admin: 09/26/16 09:17 Dose: 1 mg Gabapentin (Neurontin) 100 mg PO TID [facility] Last Admin: 09/26/16 09:17 Dose: 100 mg Azithromycin 500 mg/ Sodium (Chloride) 250 mls @ 250 mls/hr IVPB DAILY [facility] Last Admin: 09/26/16 09:32 Dose: 250 mls/hr Ceftriaxone Sodium 1 gm/ (Sodium Chloride) 100 mls @ 100 mls/hr IVPB DAILY [facility] Last Admin: 09/26/16 09:32 Dose: 100 mls/hr Sodium Chloride (Sodium Chloride 0.9%) 1,000 mls @ 100 mls/hr IV .Q10H [facility] Last Admin: 09/26/16 06:25 Dose: 100 mls/hr Insulin Glargine (Lantus) 18 unit SC Q12 [facility] Last Admin: 09/26/16 09:18 Dose: 18 units Insulin Human Regular (Novolin R) 0 unit SC ACHS [facility] PRN Reason: Protocol Last Admin: 09/26/16 08:17 Dose: 8 unit Lisinopril (Zestril) 5 mg PO DAILY [facility] Last Admin: 09/26/16 09:17 Dose: 5 mg Multivitamins (Hexavitamin) 1 tab PO DAILY [facility] Last Admin: 09/26/16 09:17 Dose: 1 tab Pantoprazole Sodium (Protonix Ec Tab) 20 mg PO DAILY [facility] Last Admin: 09/26/16 09:19 Dose: 20 mg Potassium Chloride (K-Dur 20 Meq Er Tab) 40 meq PO ONCE ONE Stop: 09/26/16 21:29 Thiamine HCl (Vitamin B1 Tab) 100 mg PO DAILY [facility] Last Admin: 09/26/16 09:17 Dose: 100 mg - Labs Labs: 09/26/16 08:16 09/26/16 08:16 APTT 29 SECONDS (21-34) 09/25/16 06:28 - Constitutional Appears: Non-toxic, No Acute Distress - Head Exam Head Exam: ATRAUMATIC, NORMOCEPHALIC - Eye Exam Eye Exam: EOMI, Normal appearance. absent: Scleral icterus - ENT Exam ENT Exam: Mucous Membranes Moist - Respiratory Exam Respiratory Exam: Clear to Ausculation Bilateral, NORMAL BREATHING PATTERN. absent: Respiratory Distress - Cardiovascular Exam Cardiovascular Exam: REGULAR RHYTHM, +S1, +S2. absent: JVD - GI/Abdominal Exam GI & Abdominal Exam: Soft, Normal Bowel Sounds. absent: Distended, Firm, Tenderness - Neurological Exam Neurological Exam: Alert, Awake, Normal Gait, Oriented x3 - Psychiatric Exam Psychiatric exam: Normal Affect, Normal Mood - Skin Skin Exam: Dry, Intact, Normal Color, Warm Assessment and Plan - Assessment and Plan (Free Text) Assessment: Assessment: 41 yo male presenting with DKA Diabetes - DKA (diabetic Ketoacidosis) history of noncompliance and recurrent DKA -Glucose 472 on admission with mod. Serum ketones -09/24/16: random glucose 306; POC glucose 330; repeat POC 210 -Gap closed - off insulin drip -Will restart Insulin 70/30 mix with 30 U in the AM and 20 U in the PM - per previous admission consult Dr. Webb, endocrinology -HgA1c: 12.1; moderate serum ketones - Insulin sliding scale coverage -Finger stick blood glucose levels still elevated in 200s -Electrolyte supplementation K 3.3 - will replace - f/u am Labs Pancytopenia likely from alcohol WBC 1.6, 1.7,2.3, was 10 on admission - trending downward f/u HIV ID consulted, Dr. Pan - help appreciated Alcohol Abuse Seizure/aspiration precautions CIWA Librium taper - will complete tomorrow MV/thiamine/folic acid No signs of withdrawal Pneumonia -O2 Sat 96% RA - continue Azithromycin 500mg IV daily and Rocephin 1g IV daily (started on ) -Patient afebrile, tachycardic, hypertensive. No signs of leukocytosis on labs. -Lactate 1.3 -Imaging -CXR (09/22/16): RLL infiltrate; mild pulmonary vascular congestion -repeat CXR (09/24/16): persistent prominent linear consolidative markings at the right lung base suggestive of infiltrate and/or atelectasis - blood culture, urine culture - both negative Thrombocytopnia Platelets 120, lowest 72 -> improving Reflux Added Sulcrafate TID prn Prophylactic NS at 100 cc/hour Protonix 20 mg PO daily SCDs No chemical anticogulation due to thrombocytopenia Regular deit <Arian Rodriguez - Last Filed: 09/26/16 13:59> Objective - Vital Signs/Intake and Output Vital Signs (last 24 hours): Temp Pulse Resp BP Pulse Ox 98 F 93 H 20 128/93 H 97 09/26/16 08:00 09/26/16 08:00 09/26/16 08:00 09/26/16 08:00 09/26/16 08:00 Intake and Output: 09/26/16 09/26/16 06:59 18:59 Intake Total 2240 Balance 2240 - Medications Medications: Current Medications Folic Acid (Folic Acid) 1 mg PO DAILY [facility] Last Admin: 09/26/16 09:17 Dose: 1 mg Gabapentin (Neurontin) 100 mg PO TID [facility] Last Admin: 09/26/16 09:17 Dose: 100 mg Azithromycin 500 mg/ Sodium (Chloride) 250 mls @ 250 mls/hr IVPB DAILY [facility] Last Admin: 09/26/16 09:32 Dose: 250 mls/hr Ceftriaxone Sodium 1 gm/ (Sodium Chloride) 100 mls @ 100 mls/hr IVPB DAILY [facility] Last Admin: 09/26/16 09:32 Dose: 100 mls/hr Insulin Human Isoph/Insulin Regular (Novolin 70/30 (70/30 Units/Ml) 10 Ml) 30 units SC ACB [facility] Insulin Human Isoph/Insulin Regular (Novolin 70/30 (70/30 Units/Ml) 10 Ml) 20 units SC ACD [facility] Insulin Human Regular (Novolin R) 0 unit SC ACHS [facility] PRN Reason: Protocol Last Admin: 09/26/16 11:49 Dose: Not Given Lisinopril (Zestril) 5 mg PO DAILY [facility] Last Admin: 09/26/16 09:17 Dose: 5 mg Multivitamins (Hexavitamin) 1 tab PO DAILY [facility] Last Admin: 09/26/16 09:17 Dose: 1 tab Pantoprazole Sodium (Protonix Ec Tab) 20 mg PO DAILY [facility] Last Admin: 09/26/16 09:19 Dose: 20 mg Potassium Chloride (K-Dur 20 Meq Er Tab) 40 meq PO ONCE ONE Stop: 09/26/16 21:29 Sucralfate (Carafate Oral Susp) 1 gm PO TID PRN PRN Reason: reflux Thiamine HCl (Vitamin B1 Tab) 100 mg PO DAILY [facility] Last Admin: 09/26/16 09:17 Dose: 100 mg - Labs Labs: 09/26/16 08:16 09/26/16 08:16 APTT 29 SECONDS (21-34) 09/25/16 06:28 Assessment and Plan (1) DKA (diabetic ketoacidosis) Status: Resolved (2) Alcohol dependence Status: Acute Attending/Attestation - Attestation I have personally seen and examined this patient.: Yes I have fully participated in the care of the patient.: Yes I have reviewed all pertinent clinical information, including history, physical exam and plan: Yes Notes (Text): 09/26/16 13:58 Patient was seen and examined at bedside with the resident Blood sugar is still uncontrolled. We will increase the insulin dose. Patient has leukopenia. We will request infectious disease consultation. I discussed the plan of care with the resident and agree with the above history and physical and assessment/plan by the resident.
[2016-09-26] MEDS ORDERED: Sucralfate 1 gm/10 ml Oral Susp UD PO PRN (13:23)
[2016-09-26] MEDS: (Novolin 70/30) NPH/Regular 70/30 Units/ml 10 ml vial SC SCH (16:51)
--- NOTE | 2016-09-27 07:23 | CP.PCM.PN ---
<Audrey Sher - Last Filed: 09/27/16 13:15> Subjective - Date & Time of Evaluation Date of Evaluation: 09/27/16 Time of Evaluation: 07:15 - Subjective Subjective: Pt seen and examined at bedside. Nursing reports no adverse events overnight. Today, pt is comfortable and in no acute distress. He states that he is not experiencing any shakes and nausea. He states that the sulcrafate helped his abdominal pain. Pt denies pain, burning or increased frequency in urination. Pt 's last BM was yesterday. Pt denies fever, chills, headache, dizziness, nausea, vomiting, diarrhea, constipation, leg pain/swelling. Pt is tolerating regular diet well. It was discussed with the pt that he will need close follow up in the clinic so that his diabetes and insulin usage can be monitored Objective - Vital Signs/Intake and Output Vital Signs (last 24 hours): Temp Pulse Resp BP Pulse Ox 98.3 F 89 20 104/74 96 09/26/16 23:28 09/26/16 23:28 09/26/16 23:28 09/26/16 23:28 09/26/16 23:28 Intake and Output: 09/27/16 09/27/16 06:59 18:59 Intake Total 800 Output Total 700 Balance 100 - Medications Medications: Current Medications Folic Acid (Folic Acid) 1 mg PO DAILY [facility] Last Admin: 09/26/16 09:17 Dose: 1 mg Gabapentin (Neurontin) 100 mg PO TID [facility] Last Admin: 09/26/16 18:16 Dose: 100 mg Moxifloxacin HCl (Avelox Iv 400mg/250ml Ns) 400 mg in 250 mls @ 167 mls/hr IVPB Q24H [facility] Insulin Human Isoph/Insulin Regular (Novolin 70/30 (70/30 Units/Ml) 10 Ml) 30 units SC ACB [facility] Insulin Human Isoph/Insulin Regular (Novolin 70/30 (70/30 Units/Ml) 10 Ml) 20 units SC ACD [facility] Last Admin: 09/26/16 16:51 Dose: 20 units Insulin Human Regular (Novolin R) 0 unit SC ACHS [facility] PRN Reason: Protocol Last Admin: 09/26/16 21:41 Dose: Not Given Lisinopril (Zestril) 5 mg PO DAILY [facility] Last Admin: 09/26/16 09:17 Dose: 5 mg Multivitamins (Hexavitamin) 1 tab PO DAILY [facility] Last Admin: 09/26/16 09:17 Dose: 1 tab Pantoprazole Sodium (Protonix Ec Tab) 20 mg PO DAILY [facility] Last Admin: 09/26/16 09:19 Dose: 20 mg Sucralfate (Carafate Oral Susp) 1 gm PO TID PRN PRN Reason: reflux Last Admin: 09/26/16 14:04 Dose: 1 gm Thiamine HCl (Vitamin B1 Tab) 100 mg PO DAILY [facility] Last Admin: 09/26/16 09:17 Dose: 100 mg - Labs Labs: 09/26/16 08:16 09/26/16 08:16 APTT 29 SECONDS (21-34) 09/25/16 06:28 - Constitutional Appears: Non-toxic, No Acute Distress - Head Exam Head Exam: ATRAUMATIC, NORMAL INSPECTION - Eye Exam Eye Exam: EOMI, PERRL Pupil Exam: NORMAL ACCOMODATION - ENT Exam ENT Exam: Mucous Membranes Moist - Respiratory Exam Respiratory Exam: Clear to Ausculation Bilateral, NORMAL BREATHING PATTERN. absent: Rales, Wheezes, Respiratory Distress - Cardiovascular Exam Cardiovascular Exam: REGULAR RHYTHM, +S1, +S2 - GI/Abdominal Exam GI & Abdominal Exam: Soft, Normal Bowel Sounds. absent: Distended, Firm, Guarding, Tenderness - Extremities Exam Extremities Exam: Normal Inspection. absent: Calf Tenderness, Pedal Edema - Back Exam Back Exam: NORMAL INSPECTION. absent: CVA tenderness (L), CVA tenderness (R), paraspinal tenderness - Neurological Exam Neurological Exam: Alert, Awake, Oriented x3 - Psychiatric Exam Psychiatric exam: Normal Affect, Normal Mood - Skin Skin Exam: Dry, Intact, Normal Color, Warm Assessment and Plan - Assessment and Plan (Free Text) Assessment: Assessment: 41 yo male presenting with DKA Diabetes - DKA (diabetic Ketoacidosis) history of noncompliance and recurrent DKA -Glucose 472 on admission with mod. Serum ketones -09/24/16: random glucose 306; POC glucose 330; repeat POC 210 -Gap closed - off insulin drip -Will restart Insulin 70/30 mix with 30 U in the AM and 20 U in the PM - per previous admission consult Dr. Webb, endocrinology -HgA1c: 12.1; moderate serum ketones - Insulin sliding scale coverage - Blood sugar levels are improving -Finger stick blood glucose levels more controlled - f/u am Labs Pancytopenia likely from alcohol WBC 2.2 up from 1.6, 1.7,2.3, was 10 on admission - trending downward HIV - negative ID consulted, Dr. Pan - help appreciated Alcohol Abuse Seizure/aspiration precautions CIWA Librium taper - completed today MV/thiamine/folic acid No signs of withdrawal Pneumonia -O2 Sat 96% RA - continue Azithromycin 500mg IV daily and Rocephin 1g IV daily (started on ) -Patient afebrile, tachycardic, hypertensive. No signs of leukocytosis on labs. -Lactate 1.3 -Imaging -CXR (09/22/16): RLL infiltrate; mild pulmonary vascular congestion -repeat CXR (09/24/16): persistent prominent linear consolidative markings at the right lung base suggestive of infiltrate and/or atelectasis - blood culture, urine culture - both negative Thrombocytopnia Resolved Platelets 152 up from 120, lowest 72 -> improving Reflux Added Sulcrafate TID prn Prophylactic NS at 100 cc/hour Protonix 20 mg PO daily [facility] No chemical anticogulation due to thrombocytopenia. Patient is ambulating Regular diet Case management <Arian Rodriguez - Last Filed: 09/27/16 15:42> Objective - Vital Signs/Intake and Output Vital Signs (last 24 hours): Temp Pulse Resp BP Pulse Ox 97.6 F 86 20 114/77 96 09/27/16 08:11 09/27/16 08:11 09/27/16 08:11 09/27/16 08:11 09/27/16 08:11 Intake and Output: 09/27/16 09/27/16 06:59 18:59 Intake Total 800 Output Total 700 Balance 100 - Medications Medications: Current Medications Folic Acid (Folic Acid) 1 mg PO DAILY [facility] Last Admin: 09/27/16 09:17 Dose: 1 mg Gabapentin (Neurontin) 100 mg PO TID [facility] Last Admin: 09/27/16 09:17 Dose: 100 mg Moxifloxacin HCl (Avelox Iv 400mg/250ml Ns) 400 mg in 250 mls @ 167 mls/hr IVPB Q24H [facility] Last Admin: 09/27/16 10:54 Dose: 167 mls/hr Insulin Human Isoph/Insulin Regular (Novolin 70/30 (70/30 Units/Ml) 10 Ml) 30 units SC ACB [facility] Last Admin: 09/27/16 09:00 Dose: 30 units Insulin Human Isoph/Insulin Regular (Novolin 70/30 (70/30 Units/Ml) 10 Ml) 20 units SC ACD [facility] Last Admin: 09/26/16 16:51 Dose: 20 units Insulin Human Regular (Novolin R) 0 unit SC ACHS [facility] PRN Reason: Protocol Last Admin: 09/27/16 08:22 Dose: Not Given Lisinopril (Zestril) 5 mg PO DAILY [facility] Last Admin: 09/27/16 09:17 Dose: 5 mg Multivitamins (Hexavitamin) 1 tab PO DAILY [facility] Last Admin: 09/27/16 09:17 Dose: 1 tab Pantoprazole Sodium (Protonix Ec Tab) 20 mg PO DAILY [facility] Last Admin: 09/27/16 09:17 Dose: 20 mg Sucralfate (Carafate Oral Susp) 1 gm PO TID PRN PRN Reason: reflux Last Admin: 09/26/16 14:04 Dose: 1 gm Thiamine HCl (Vitamin B1 Tab) 100 mg PO DAILY [facility] Last Admin: 09/27/16 09:17 Dose: 100 mg - Labs Labs: 09/27/16 07:07 09/27/16 07:07 APTT 29 SECONDS (21-34) 09/25/16 06:28 Assessment and Plan (1) DKA (diabetic ketoacidosis) Status: Resolved (2) Alcohol dependence Status: Acute Attending/Attestation - Attestation I have personally seen and examined this patient.: Yes I have fully participated in the care of the patient.: Yes I have reviewed all pertinent clinical information, including history, physical exam and plan: Yes Notes (Text): 09/27/16 15:41 Patient was seen and examined at bedside with the resident Patient blood sugar is better controlled We will continue to titrate for optimal control Patient is also on antibiotics for pneumonia. Discharge planning likely in the next 24-48 hours if the patient is medically stable Discussed the plan of care with the resident and agree with the above history and physical and assessment/plan but the resident.
[2016-09-27 07:24] LABS: BASO % 1.1 % (0.0-2.0); EOS % 1.9 % (0.0-4.0); HEMATOCRIT 33.1 % (35.0-51.0); LYMPH % 44.3 % (20.0-40.0); MEAN CELL VOLUME 88.5 fL (80.0-94.0); MEAN CORPUSCULAR HGB CONC 33.9 g/dL (33.0-37.0); MEAN PLATELET VOLUME 7.8 fL (7.2-11.7); MONO # 0.4 K/uL (0.0-0.8); MONO % 16.4 % (0.0-10.0); NRBC % 0.1 % (0.0-2.0); RED CELL DISTRIBUTION WIDTH 13.4 % (11.5-14.5); WHITE BLOOD COUNT 2.2 K/uL (4.8-10.8)
[2016-09-27 08:00] LABS: CHLORIDE 101 mmol/L (98-107)
[2016-09-27 08:01] LABS: POTASSIUM 3.7 mmol/L (3.6-5.2); SODIUM 135 mmol/L (132-148)
[2016-09-27 08:03] LABS: GFR AFRICAN-AMERICAN > 60
[2016-09-27 08:04] LABS: ALB/GLOB RATIO 1.2 (1.0-2.1); ALKALINE PHOSPHATASE 118 U/L (38-126); ALT/SGPT 58 U/L (21-72); AST/SGOT 50 U/L (17-59); BILIRUBIN,TOTAL 0.4 mg/dL (0.2-1.3); BLOOD UREA NITROGEN 9 mg/dL (9-20); CARBON DIOXIDE 28 mmol/L (22-30); GLUCOSE,RANDOM 96 mg/dL (75-110); PHOSPHOROUS 3.4 mg/dL (2.5-4.5); TOTAL PROTEIN 5.7 g/dL (6.3-8.3)
[2016-09-27 08:05] LABS: MAGNESIUM 1.9 mg/dL (1.6-2.3)
[2016-09-27] MEDS: (Novolin R) Insulin Human Regular 100 units/ml vial SC SCH ×3 (08:22→21:58)
[2016-09-27] MEDS: (Novolin 70/30) NPH/Regular 70/30 Units/ml 10 ml vial SC SCH ×2 (09:00→18:26)
[2016-09-27] MEDS: Pantoprazole 20 mg EC Tab PO SCH (09:17)
[2016-09-27] MEDS: Multiple Vitamins Tab PO SCH (09:17)
--- NOTE | 2016-09-27 09:24 | CON ---
DATE: 09/26/2016 HISTORY OF PRESENT ILLNESS: This patient is a 41-year-old male. He was admitted here on 09/22. He ca me in with abdominal pain. He also had high sugars. He says he is diabetic and hypertensive. Came with nausea and vomiting for 4 days and he was unable to eat and take all his medications. He has be en on metformin otherwise and he does have a history of alcohol abuse and he had a drink 2 weeks ago. He does say he used to drink a lot and he was treated for ____ and ____ more awake, alert at this t larry. ____ to ____ questions. However, his white count dropped to 1.6 in spite of being on antibioti cs. He was being treated for a pneumonia on the right lung base and he denies any cough. Denies sor e throat. Denies any headache. Does complain of vague abdominal pain. He had a bowel movement yest erday. He denies any pain on urination or any dysuria. Does have some vague pain in the abdomen as he is recovering from DKA. PAST MEDICAL HISTORY: Significant for diabetes and hypertension. MEDICATIONS: Metformin and a blood pressure medicine. ALLERGIES: He is not allergic to any medicines. SOCIAL HISTORY: Significant for drinking 6 beers a day on weekends and denies any drug abuse or alco hol abuse. He also denies being HIV. PAST MEDICAL HISTORY: Significant for history of hypertension, he never smoked. Pulmonary dey, he denies any lung infections. No neurological problems. No HEENT problems. No kidney problems. He h as diabetes type 2 and has no hematological problem. No dermatological problems. No musculoskeletal . No GI, no problems. He denies any psych issues. PAST SURGICAL HISTORY: No history of previous surgeries. ALLERGIES: He is not allergic to any medications. MEDICATIONS: At the present time, he is on Zithromax, Rocephin, folic acid, gabapentin, insulin cove rage, lisinopril, ____ vitamin, Protonix, K-Dur, Carafate, and ____ thiamine. He is off Librium at t his time. PHYSICAL EXAMINATION: VITAL SIGNS: I find his temperature is 98, pulse 93, blood pressure 128/93, respirations are 20. HEENT: Head is atraumatic, normocephalic. No icterus present. No pallor present. Eye movements ar e unremarkable. Tongue is moist. Mouth is unremarkable. NECK: Supple. MARKY is flat. LUNGS: Have crackles on the right base, otherwise clear. HEART: S1, S2 is regular. No murmurs appreciated. ABDOMEN: Soft, nontender, no guarding, no rigidity present. EXTREMITIES: No edema, clubbing or cyanosis. LABORATORY DATA: White count is 1.6, hemoglobin 11.8, hematocrit 34.4, platelet count is 120. He di d come in with a white count of 3.9, hemoglobin 11.9, hematocrit 35.7, platelet count of 72 and today is the fourth day of his antibiotic. His potassium is 3.3 and needs to be supplemented. Alk phos i s 150, total protein is 5.7, albumin is 3.1. He had an x-ray done. X-ray shows from 09/24 shows persi stent prominent ____ consolidative markings at the ____ lung base suggestive of infiltrate and/or ate lectasis. This is from 09/24. He also had abdominal and a pelvic CT done, which showed limited motion , patchy atelectasis, infiltrate, mild left basilar atelectasis, mild distended urinary bladder, rule out markedly distended urinary bladder outlet obstruction. So, at this time, I think he ____ his Zithromax which is at 11. He got that. He got Rocephin, so we will discontinue that and put him on Avelox p.o. from the morning and IV for now and we can switch t o oral once the white count comes up. He is probably pancytopenic due to previous myelosuppression f rom IV antibiotics. We are also going to check the HIV test to start tomorrow, , at 10. Billy nk you, we will follow with you and repeat the labs tomorrow. Yaw Pan MD cc: [id number] TT: 09/26/2016 18:25:24 Confirmation # [id number] Dictation # [id number]
[2016-09-27] MEDS: Moxifloxacin IV 400mg/250ml NS 400 MG/250 ML BAG IVPB SCH (10:54)
--- NOTE | 2016-09-27 12:08 | CARD ---
APPROVED REPORT EKG Measurement Heart [id number] LA 128P37 [id number] <Conclusion> Normal sinus rhythm Nonspecific T wave abnormality Abnormal ECG
[2016-09-27 23:39] VITALS: TEMP 98.5
[2016-09-28 07:28] LABS: BASO % 1.1 % (0.0-2.0); EOS # 0.1 K/uL (0.0-0.7); EOS % 1.8 % (0.0-4.0); HEMATOCRIT 32.8 % (35.0-51.0); LYMPH % 35.2 % (20.0-40.0); MEAN CELL VOLUME 89.5 fL (80.0-94.0); MEAN CORPUSCULAR HEMOGLOBIN 30.4 pg (27.0-31.0); MEAN PLATELET VOLUME 7.8 fL (7.2-11.7); MONO # 0.4 K/uL (0.0-0.8); MONO % 15.4 % (0.0-10.0); NRBC % 0.2 % (0.0-2.0); RED CELL DISTRIBUTION WIDTH 13.3 % (11.5-14.5); WHITE BLOOD COUNT 2.9 K/uL (4.8-10.8)
[2016-09-28 07:30] LABS: CHLORIDE 101 mmol/L (98-107)
[2016-09-28 07:31] LABS: POTASSIUM 4.3 mmol/L (3.6-5.2); SODIUM 136 mmol/L (132-148)
[2016-09-28 07:33] LABS: ALKALINE PHOSPHATASE 110 U/L (38-126); ALT/SGPT 53 U/L (21-72); AST/SGOT 46 U/L (17-59); BILIRUBIN,TOTAL 0.4 mg/dL (0.2-1.3); BLOOD UREA NITROGEN 11 mg/dL (9-20); CARBON DIOXIDE 27 mmol/L (22-30); GFR AFRICAN-AMERICAN > 60; GLUCOSE,RANDOM 179 mg/dL (75-110); PHOSPHOROUS 4.1 mg/dL (2.5-4.5); TOTAL PROTEIN 5.4 g/dL (6.3-8.3)
[2016-09-28 07:34] LABS: CALCIUM 8.9 mg/dl (8.6-10.4)
[2016-09-28 07:35] LABS: ALB/GLOB RATIO 1.3 (1.0-2.1)
[2016-09-28] MEDS: (Novolin 70/30) NPH/Regular 70/30 Units/ml 10 ml vial SC SCH (08:09)
[2016-09-28] MEDS: (Novolin R) Insulin Human Regular 100 units/ml vial SC SCH ×2 (08:10→12:21)
[2016-09-28 08:15] VITALS: BP 108/72; PULSE 100; O2SAT 99
[2016-09-28] MEDS: Moxifloxacin IV 400mg/250ml NS 400 MG/250 ML BAG IVPB SCH (09:52)
[2016-09-28] MEDS: Multiple Vitamins Tab PO SCH (10:22)
[2016-09-28] MEDS: Pantoprazole 20 mg EC Tab PO SCH (11:25)
--- NOTE | 2016-09-28 12:16 | CP.PCM.DIS ---
Provider - Provider Date of Admission: 09/22/16 07:36 Attending physician: Perry Baer DO Hospital Course - Lab Results Lab Results: Micro Results 09/22/16 17:00 Blood Blood Culture - Final NO GROWTH AFTER 5 DAYS 09/22/16 17:00 Blood Gram Stain - Final TEST NOT PERFORMED 09/22/16 17:00 Blood Blood Culture - Final NO GROWTH AFTER 5 DAYS 09/22/16 17:00 Blood Gram Stain - Final TEST NOT PERFORMED 09/25/16 15:58 Nose MRSA Culture - Final MRSA NOT DETECTED 09/22/16 Unknown Nose MRSA Culture (Admit) - Final MRSA NOT DETECTED 09/22/16 10:33 Urine,Valladares Urine Culture - Final No Growth (<1,000 CFU/ML) Most Recent Lab Values WBC 2.9 K/uL (4.8-10.8) L 09/28/16 06:58 RBC 3.66 Mil/uL (4.40-5.90) L 09/28/16 06:58 Hgb 11.1 g/dL (12.0-18.0) L 09/28/16 06:58 Hct 32.8 % (35.0-51.0) L 09/28/16 06:58 MCV 89.5 fL (80.0-94.0) 09/28/16 06:58 MCH 30.4 pg (27.0-31.0) 09/28/16 06:58 MCHC 34.0 g/dL (33.0-37.0) 09/28/16 06:58 RDW 13.3 % (11.5-14.5) 09/28/16 06:58 Plt Count 175 K/uL (130-400) 09/28/16 06:58 MPV 7.8 fL (7.2-11.7) 09/28/16 06:58 Neut % (Auto) 46.5 % (50.0-75.0) L 09/28/16 06:58 Lymph % (Auto) 35.2 % (20.0-40.0) 09/28/16 06:58 [place] % (Auto) 15.4 % (0.0-10.0) H 09/28/16 06:58 Eos % (Auto) 1.8 % (0.0-4.0) 09/28/16 06:58 Baso % (Auto) 1.1 % (0.0-2.0) 09/28/16 06:58 Neut # 1.3 K/uL (1.8-7.0) L 09/28/16 06:58 Lymph # 1.0 K/uL (1.0-4.3) 09/28/16 06:58 [place] # 0.4 K/uL (0.0-0.8) 09/28/16 06:58 Eos # 0.1 K/uL (0.0-0.7) 09/28/16 06:58 Baso # 0.0 K/uL (0.0-0.2) 09/28/16 06:58 Neutrophils % (Manual) 53 % (50-75) 09/26/16 08:16 Band Neutrophils % 2 % (0-2) 09/26/16 08:16 Lymphocytes % (Manual) 38 % (20-40) 09/26/16 08:16 Reactive Lymphs % 1 % (0-0) H 09/22/16 05:56 Monocytes % (Manual) 7 % (0-10) 09/26/16 08:16 Platelet Estimate Slightly decreased (NORMAL) L 09/26/16 08:16 Large Platelets Present 09/22/16 10:08 RBC Morphology Normal 09/26/16 08:16 Polychromasia Slight 09/22/16 10:08 Hypochromasia (manual) Slight 09/22/16 10:08 Poikilocytosis (manual Slight 09/22/16 10:08 Anisocytosis (manual) Slight 09/22/16 10:08 Ovalocytes Slight 09/22/16 10:08 Lula Cells Slight 09/22/16 10:08 APTT 29 SECONDS (21-34) 09/25/16 06:28 Puncture Site Rradia 09/23/16 10:00 pCO2 24 mm/Hg (35-45) L 09/23/16 10:00 pO2 96 mm/Hg (80-100) 09/23/16 10:00 HCO3 18.4 mmol/L (21-28) L 09/23/16 10:00 ABG pH 7.40 (7.35-7.45) 09/23/16 10:00 ABG Total CO2 15.6 mmol/L (22-28) L 09/23/16 10:00 ABG O2 Saturation 98.0 % (95-98) 09/23/16 10:00 ABG Base Excess -8.3 mmol/L (-2.0-3.0) L 09/23/16 10:00 ABG Hemoglobin 11.5 g/dL (11.7-17.4) L 09/23/16 10:00 ABG Carboxyhemoglobin 0.9 % (0.5-1.5) 09/23/16 10:00 POC ABG HHb (Measured) 2.0 % (0.0-5.0) 09/23/16 10:00 ABG Methemoglobin 1.3 % (0.0-3.0) 09/23/16 10:00 Micheal Test Pos 09/23/16 10:00 ABG Potassium 3.9 mmol/L (3.6-5.2) 09/22/16 06:57 VBG pH 7.29 (7.32-7.43) L 09/22/16 22:00 VBG pCO2 26 mmHg (40-60) L 09/22/16 22:00 VBG HCO3 13.5 mmol/L 09/22/16 22:00 VBG Total CO2 13.3 mmol/L (22-28) L 09/22/16 22:00 VBG O2 Sat (Calc) 58.5 % (40-65) 09/22/16 22:00 VBG Base Excess -12.4 mmol/L (0.0-2.0) L 09/22/16 22:00 VBG Potassium 2.9 mmol/L (3.6-5.2) L 09/22/16 22:00 A-a O2 Difference 24.0 mm/Hg 09/23/16 10:00 Respiratory Index 0.3 09/23/16 10:00 Hgb O2 Saturation 95.8 % (95.0-98.0) 09/23/16 10:00 Sodium 141.0 mmol/l (132-148) 09/22/16 22:00 Chloride 110.0 mmol/L (98-107) H 09/22/16 22:00 Glucose 109 mg/dl (75-110) 09/22/16 22:00 Lactate 1.1 mmol/L (0.7-2.1) 09/22/16 22:00 Liter Flow 2.0 09/22/16 06:57 FiO2 21.0 % 09/23/16 10:00 Crit Value Called To Dr gilberto brown 09/22/16 12:08 Crit Value Called By Rosie miller 09/22/16 12:08 Crit Value Read Back Y 09/22/16 12:08 Blood Gas Notified Time 1213 09/22/16 12:08 Sodium 136 mmol/L (132-148) 09/28/16 06:58 Potassium 4.3 mmol/L (3.6-5.2) 09/28/16 06:58 Chloride 101 mmol/L (98-107) 09/28/16 06:58 Carbon Dioxide 27 mmol/L (22-30) 09/28/16 06:58 Anion Gap 12 (10-20) 09/28/16 06:58 BUN 11 mg/dL (9-20) 09/28/16 06:58 Creatinine 0.5 MG/DL (0.8-1.5) L 09/28/16 06:58 Est GFR ( Amer) > 60 09/28/16 06:58 Est GFR (Non-Af Amer) > 60 09/28/16 06:58 POC Glucose (mg/dL) 93 mg/dL (65-110) 09/28/16 11:57 Random Glucose 179 mg/dL (75-110) H 09/28/16 06:58 Hemoglobin A1c 12.1 % (4.2-6.5) H 09/22/16 10:08 Lactic Acid 2.0 mmol/L (0.7-2.1) 09/22/16 10:08 Calcium 8.9 mg/dl (8.6-10.4) 09/28/16 06:58 Phosphorus 4.1 mg/dL (2.5-4.5) 09/28/16 06:58 Magnesium 2.0 mg/dL (1.6-2.3) 09/28/16 06:58 Total Bilirubin 0.4 mg/dL (0.2-1.3) 09/28/16 06:58 AST 46 U/L (17-59) 09/28/16 06:58 ALT 53 U/L (21-72) 09/28/16 06:58 Alkaline Phosphatase 110 U/L (38-126) 09/28/16 06:58 Total Protein 5.4 g/dL (6.3-8.3) L 09/28/16 06:58 Albumin 3.0 g/dL (3.5-5.0) L 09/28/16 06:58 Globulin 2.4 gm/dL (2.2-3.9) 09/28/16 06:58 Albumin/Globulin Ratio 1.3 (1.0-2.1) 09/28/16 06:58 Triglycerides 72 mg/dL (0-149) D 09/23/16 05:49 Cholesterol 157 mg/dL (0-199) 09/23/16 05:49 LDL Cholesterol Direct 44 mg/dL (0-129) 09/23/16 05:49 HDL Cholesterol 77 mg/dL (30-70) H 09/23/16 05:49 Lipase 455 U/L (23-300) H 09/22/16 15:46 TSH 3rd Generation 0.74 mIU/L (0.46-4.68) 09/22/16 10:08 Arterial Blood Potassium 3.9 mmol/L (3.6-5.2) 09/22/16 06:57 Venous Blood Potassium 2.9 mmol/L (3.6-5.2) L 09/22/16 22:00 Urine Color Yellow (YELLOW) 09/22/16 07:25 Urine Clarity Hazy (Clear) 09/22/16 07:25 Urine pH 5.0 (5.0-8.0) 09/22/16 07:25 Ur Specific [place] 1.014 (1.003-1.030) 09/22/16 07:25 Urine Protein 1+ mg/dL (NEGATIVE) H 09/22/16 07:25 Urine Glucose (UA) 3+ mg/dL (Normal) H 09/22/16 07:25 Urine Ketones 2+ mg/dL (NEGATIVE) H 09/22/16 07:25 Urine Blood 1+ (NEGATIVE) H 09/22/16 07:25 Urine Nitrate Negative (NEGATIVE) 09/22/16 07:25 Urine Bilirubin Negative (NEGATIVE) 09/22/16 07:25 Urine Urobilinogen Normal mg/dL (0.2-1.0) 09/22/16 07:25 Ur Leukocyte Esterase Neg [place]/uL (Negative) 09/22/16 07:25 Urine WBC (Auto) 2 /hpf (0-5) 09/22/16 07:25 Urine RBC (Auto) 2 /hpf (0-3) 09/22/16 07:25 Ur Squamous Epith Cells 1 /hpf (0-5) 09/22/16 07:25 Urine Bacteria Rare (<OCC) 09/22/16 07:25 Hyaline Casts 0-2 /lpf (0-2) 09/22/16 07:25 Urine Opiates Screen Negative (NEGATIVE) 09/22/16 15:02 Urine Methadone Screen Negative (NEGATIVE) 09/22/16 15:02 Ur Barbiturates Screen Negative (NEGATIVE) 09/22/16 15:02 Ur Phencyclidine Scrn Negative (NEGATIVE) 09/22/16 15:02 Ur Amphetamines Screen Negative (NEGATIVE) 09/22/16 15:02 U Benzodiazepines Scrn Negative (NEGATIVE) 09/22/16 15:02 U Oth Cocaine Metabols Negative (NEGATIVE) 09/22/16 15:02 U Cannabinoids Screen Negative (NEGATIVE) 09/22/16 15:02 Alcohol, Quantitative < 10 mg/dl (0-10) 09/22/16 10:08 Serum Ketones Moderate (NEGATIVE) 09/23/16 14:33 HIV 1&2 Antibody Screen Negative (NEGATIVE) 09/27/16 07:07 - Hospital Course Hospital Course: Patient is stable for discharge home. He is to follow up in the [facility] within 1-2 weeks of discharge. He is to call and make an appointment. He is to take the following medications: Insulin 70/30 - 30 units in the morning with breakfast and 20 units in the evening with dinner Lisionpril 5mg one by mouth daily Simvastatin 10mg one by mouth at night Thiamine 100mg one mouth daily Folic Acid 1mg one by mouth daily He was also given a script for insulin syringes, lancets, and needles. He is to check his blood sugar 4 times a day with meals and at bedtime. He is to record these numbers and bring this record to his follow up appointment. He will also need a referral to podiatry and ophthalmology. Patient is to return to the emergency room if symptoms return. All instruction explained to the patient and he agrees. Discharge Exam - Head Exam Head Exam: ATRAUMATIC, NORMAL INSPECTION Discharge Plan - Discharge Medications Prescriptions: Folic Acid 1 mg PO DAILY #30 tab Insulin Human (NPH)/Regular [Novolin 70/30 (70/30 units/ml) 10 ml] 30 units SC ACB #1 unit Lisinopril [Zestril] 5 mg PO DAILY #30 tab Simvastatin 10 mg PO HS #30 tablet Sucralfate [Carafate Oral Susp] 1 gm PO TID PRN #30 PRN Reason: reflux Thiamine [Vitamin B1 Tab] 100 mg PO DAILY #30 tab - Follow Up Plan Condition: CRITICAL Disposition: HOME/ ROUTINE Additional Instructions: Patient is stable for discharge home. He is to follow up in the [facility] within 1-2 weeks of discharge. He is to call and make an appointment. He is to take the following medications: Insulin 70/30 - 30 units in the morning with breakfast and 20 units in the evening with dinner Lisionpril 5mg one by mouth daily Simvastatin 10mg one by mouth at night Thiamine 100mg one mouth daily Folic Acid 1mg one by mouth daily He was also given a script for insulin syringes, lancets, and needles. He is to check his blood sugar 4 times a day with meals and at bedtime. He is to record these numbers and bring this record to his follow up appointment. He will also need a referral to podiatry and ophthalmology. Patient is to return to the emergency room if symptoms return. All instruction explained to the patient and he agrees. El paciente es estable para el hogar de la descarga. l debe seguir en el centro de tracey de la vecindad en el [facility] dentro de 1-2 semanas de la descarga. Debe lonnie los siguientes medicamentos: Insulina 70/30-30 unidades en la maana con desayuno y 20 unidades en la noche con preparator Lisionpril 5 mg kinjal por la boca diariamente Simvastatina 10 mg kinjal por boca en la noche Tiamina 100 mg anastacio boca diariamente cido flico 1 mg por boca diariamente Tambin se le vira un erich para jeringas de insulina, lancetas y agujas. l debe revisar betancourt azcar en la miranda 4 veces al da con las comidas y a la hora de acostarse. l debe registrar estos nmeros y llevar grupo registro a betancourt cali de seguimiento. Tambin necesitar anastacio referencia a podologa y Oftalmologa. El paciente debe regresar a la doreen de emergencias si los sntomas regresan. Toda la instruccin explicada al paciente y l est de acuerdo. Referrals: [facility] [Outside]
--- NOTE | 2016-09-28 16:40 | CARD ---
APPROVED REPORT EKG Measurement Heart [id number] [place] [id number] <Conclusion> Sinus tachycardia Possible Left atrial enlargement Borderline ECG
== END 2016-09-28 13:55 | disposition home or self-care (01) | DRG 566 ==
LOC: C.ER 05:18 → C.9E 07:36 → C.9I 08:26 → C.3T 09-25 15:21
PROVIDERS: ADMIT Hospitalist; ATTEND Hospitalist
DX: E13.10 Other specified diabetes mellitus with ketoacidosis without coma (principal); J18.9 Pneumonia, unspecified organism; D61.818 Other pancytopenia; F10.20 Alcohol dependence, uncomplicated; I10 Essential (primary) hypertension; N32.89 Other specified disorders of bladder; Z79.84 Long term (current) use of oral hypoglycemic drugs; Z91.19 Patient's noncompliance with other medical treatment and regimen